=== PATIENT | female | born 1990 | race Caucasian/White ===

== ENCOUNTER 2017-05-18 21:55 | Emergency (ER) | payer OTHER ==
[~2017-05-18] VITALS: Ht 162.6 cm; Wt 103.0 kg
[~2017-05-18 21:55] MED LIST: GABA100C4 PO; LORA-474 PO; NORC10TA2 PO; SERT50 PO; SYNT125T PO
[2017-05-18 21:59] VITALS: BP 191/98; PULSE 108; RESP 16; TEMP 98; O2SAT 99
[2017-05-18] MEDS ORDERED: LIPI20TA PO (23:12)
[2017-05-18] MEDS ORDERED: LEVO.15 PO (23:12)
[2017-05-18] MEDS ORDERED: LEXA10TA PO (23:12)
[2017-05-18] MEDS ORDERED: KLON2TAB PO (23:12)
[2017-05-18] MEDS ORDERED: HYDR-3366 PO (23:12)
[2017-05-18] MEDS ORDERED: ONDANSETRON HCL 4 MG/2 ML VIAL IV PUSH ONE (23:30)
[2017-05-18] MEDS ORDERED: SODIUM CHLORIDE 0.9% FLUSH 10 ML FLUSH IV FLUSH PRN (23:30)
[2017-05-18] MEDS ORDERED: MORPHINE SULFATE 4 MG/ML INJ IV PUSH ONE (23:30)
--- NOTE | 2017-05-18 23:35 | PD ---
HPI Chief Complaint: Flank/Kidney Pain Time Seen by Provider: 23:13 Travel History International Travel<30 days: No Contact w/Intl Traveler<30days: No Traveled to known affect area: No History of Present Illness HPI 26yo F with PMH of anxiety presents to the ED with c/o left flank pain that radiates to left abdomen for 1 month. States pain has been gradually worsening. Associated with nausea and NBNB vomiting. Denies any fever, chest pain, urinary complaints, vaginal bleeding or discharge. PFSH Past Medical History Bipolar Disorder: Yes Anxiety: Yes Depression: Yes Diminished Hearing: No Endocrine: Yes Genitourinary: No Immune Disorder: No Musculoskeletal: Yes Neurologic: No Reproductive: Yes (POLYCYSTIC OVARIAN SYN) Respiratory: No Thyroid Disease: Yes Ulcer: No ?: Unknown : 1 Miscarriage: 1 Social History Alcohol Use: Yes ("a beer every now and then") Tobacco Use: No Substance Use: Yes Allergies-Medications (Allergen,Severity, Reaction): Coded Allergies: Amoxicillin (Verified Allergy, Intermediate, Rash, 05/18/17) Ibuprofen (Verified Allergy, Intermediate, Swelling, 05/18/17) "my tongue swells up" Reported Meds & Prescriptions Reported Meds & Active Scripts Active Tylenol (Acetaminophen) 325 Mg Tab 650 Mg PO Q6H PRN Reported Lipitor (Atorvastatin Calcium) 20 Mg Tab 20 Mg PO HS Klonopin (Clonazepam) 2 Mg Tab 2 Mg PO TID [place] (Hydrocodone-Acetaminophen) 10-325 Mg Tab 1 Tab PO Q6H PRN Lexapro (Escitalopram Oxalate) 10 Mg Tab 10 Mg PO DAILY Synthroid (Levothyroxine Sodium) 150 Mcg Tab 150 Mcg PO DAILY Review of Systems Except as stated in HPI: all other systems reviewed are Neg Physical Exam Narrative GENERAL: 26yo F in mild distress. SKIN: Focused skin assessment warm/dry. HEAD: Atraumatic. Normocephalic. EYES: Pupils equal and round. No scleral icterus. No injection or drainage. CARDIOVASCULAR: Regular rate and rhythm. No murmur appreciated. RESPIRATORY: No accessory muscle use. Clear to auscultation. Breath sounds equal bilaterally. GASTROINTESTINAL: Abdomen soft, obese. Mild ttp LLQ. No RLQ ttp. No rebound tenderness or guarding. MUSCULOSKELETAL: No obvious deformities. No clubbing. No cyanosis. No edema. NEUROLOGICAL: Awake and alert. No obvious cranial nerve deficits. Motor grossly within normal limits. Normal speech. PSYCHIATRIC: Anxious. Data Data Last Documented VS Vital Signs Date Time Temp Pulse Resp B/P Pulse Ox O2 Delivery O2 Flow Rate FiO2 05/19/17 02:12 16 05/18/17 21:59 98.0 108 191/98 99 Room Air Orders Basic Metabolic Panel (Bmp) (05/18/17 23:19) Complete Blood Count With Diff (05/18/17 23:19) Lipase (05/18/17 23:19) Urinalysis - C+S If Indicated (05/18/17 23:19) Ct Abd/Pel W Iv Contrast(Rout) (05/18/17 23:19) Iv Access Insert/Monitor (05/18/17 23:19) Ecg Monitoring (05/18/17 23:19) Oximetry (05/18/17 23:19) Sodium Chloride 0.9% Flush (Ns Flush) (05/18/17 23:30) Ed Urine Pregnancytest Poc (05/18/17 23:19) Ondansetron Inj (Zofran Inj) (05/18/17 23:30) Morphine Inj (Morphine Inj) (05/18/17 23:30) Iohexol 350 Inj (Omnipaque 350 Inj) (05/19/17 00:57) Labs Laboratory Tests Test 05/18/17 23:20 White Blood Count 10.6 TH/MM3 Red Blood Count 4.59 MIL/MM3 Hemoglobin 12.9 GM/DL Hematocrit 37.3 % Mean Corpuscular Volume 81.4 FL Mean Corpuscular Hemoglobin 28.1 PG Mean Corpuscular Hemoglobin 34.5 % Concent Red Cell Distribution Width 15.8 % Platelet Count 303 TH/MM3 Mean Platelet Volume 8.8 FL Neutrophils (%) (Auto) 49.3 % Lymphocytes (%) (Auto) 40.9 % Monocytes (%) (Auto) 4.6 % Eosinophils (%) (Auto) 4.7 % Basophils (%) (Auto) 0.5 % Neutrophils # (Auto) 5.2 TH/MM3 Lymphocytes # (Auto) 4.3 TH/MM3 Monocytes # (Auto) 0.5 TH/MM3 Eosinophils # (Auto) 0.5 TH/MM3 Basophils # (Auto) 0.1 TH/MM3 CBC Comment DIFF FINAL Differential Comment Urine Color YELLOW Urine Turbidity CLEAR Urine pH 5.5 Urine Specific [place] 1.031 Urine Protein NEG mg/dL Urine Glucose (UA) NEG mg/dL Urine Ketones NEG mg/dL Urine Occult Blood NEG Urine Nitrite NEG Urine Bilirubin NEG Urine Urobilinogen LESS THAN 2.0 MG/DL Urine Leukocyte Esterase NEG Urine RBC LESS THAN 1 /hpf Urine WBC 3 /hpf Urine Squamous Epithelial 2 /hpf Cells Urine Bacteria RARE /hpf Microscopic Urinalysis Comment CULT NOT INDICATED Sodium Level 139 MEQ/L Potassium Level 3.8 MEQ/L Chloride Level 104 MEQ/L Carbon Dioxide Level 30.6 MEQ/L Anion Gap 4 MEQ/L Blood Urea Nitrogen 12 MG/DL Creatinine 0.73 MG/DL Estimat Glomerular Filtration 96 ML/MIN Rate Random Glucose 87 MG/DL Calcium Level 9.2 MG/DL Lipase 121 U/L [facility] Medical Decision Making Medical Screen Exam Complete: Yes Emergency Medical Condition: Yes Interpretation(s) Laboratory Tests Test 05/18/17 23:20 White Blood Count 10.6 TH/MM3 (4.0-11.0) Red Blood Count 4.59 MIL/MM3 (4.00-5.30) Hemoglobin 12.9 GM/DL (11.6-15.3) Hematocrit 37.3 % (35.0-46.0) Mean Corpuscular Volume 81.4 FL (80.0-100.0) Mean Corpuscular Hemoglobin 28.1 PG (27.0-34.0) Mean Corpuscular Hemoglobin 34.5 % Concent (32.0-36.0) Red Cell Distribution Width 15.8 % (11.6-17.2) Platelet Count 303 TH/MM3 (150-450) Mean Platelet Volume 8.8 FL (7.0-11.0) Neutrophils (%) (Auto) 49.3 % (16.0-70.0) Lymphocytes (%) (Auto) 40.9 % (9.0-44.0) Monocytes (%) (Auto) 4.6 % (0.0-8.0) Eosinophils (%) (Auto) 4.7 % (0.0-4.0) Basophils (%) (Auto) 0.5 % (0.0-2.0) Neutrophils # (Auto) 5.2 TH/MM3 (1.8-7.7) Lymphocytes # (Auto) 4.3 TH/MM3 (1.0-4.8) Monocytes # (Auto) 0.5 TH/MM3 (0-0.9) Eosinophils # (Auto) 0.5 TH/MM3 (0-0.4) Basophils # (Auto) 0.1 TH/MM3 (0-0.2) CBC Comment DIFF FINAL Differential Comment Urine Color YELLOW (YELLW/STRAW) Urine Turbidity CLEAR (CLEAR) Urine pH 5.5 (5.0-8.5) Urine Specific [place] 1.031 (1.002-1.035) Urine Protein NEG mg/dL (NEG-TRACE) Urine Glucose (UA) NEG mg/dL (NEG) Urine Ketones NEG mg/dL (NEG) Urine Occult Blood NEG (NEG) Urine Nitrite NEG (NEG) Urine Bilirubin NEG (NEG) Urine Urobilinogen LESS THAN 2.0 MG/DL (LESS THAN 2.0) Urine Leukocyte Esterase NEG (NEG) Urine RBC LESS THAN 1 /hpf (0-3) Urine WBC 3 /hpf (0-5) Urine Squamous Epithelial 2 /hpf (0-5) Cells Urine Bacteria RARE /hpf (NONE) Microscopic Urinalysis Comment CULT NOT INDICATED Sodium Level 139 MEQ/L (136-145) Potassium Level 3.8 MEQ/L (3.5-5.1) Chloride Level 104 MEQ/L (98-107) Carbon Dioxide Level 30.6 MEQ/L (21.0-32.0) Anion Gap 4 MEQ/L (5-15) Blood Urea Nitrogen 12 MG/DL (7-18) Creatinine 0.73 MG/DL (0.50-1.00) Estimat Glomerular Filtration 96 ML/MIN (>89) Rate Random Glucose 87 MG/DL (74-106) Calcium Level 9.2 MG/DL (8.5-10.1) Lipase 121 U/L (73-393) Differential Diagnosis Nephrolithiasis vs. colitis vs. diverticulitis Narrative Course 26yo anxious appearing female here with c/o left sided abdominal pain for 1 month. Labs reviewed, no leukocytosis. BMP unremarkable. Lipase normal. UA shoed no leukocyte. Culture not indicated. Urine negative. CTa/p showed right lower quadrant abdominal wall hernia containing fat and apparent associated cutaneous ulceration. Correlation recommended. Pt is morbidly obese but has no right side abdominal pain and do not see any cutaneous ulcerations. Fibroid uterus, follow up with elective ultrasound suggested. No evidence of kidney stone, hydronephrosis or acute process. Pt states she knows she has a hernia. Advised to follow up with general surgery as needed as outpatient. Pt given morphine and zofran and reevaluated at bedside. Abdominal pain has resolved. Nausea has resolved as well. Return precautions given. Diagnosis Primary Impression: Abdominal pain Qualified Code: R10.32 - Left lower quadrant pain Referrals: Bull Walters MD as needed Abdominal wall hernia Patient Instructions: General Instructions Departure Forms: Tests/Procedures Additional Instructions: Please follow up with general surgery as needed for abdominal wall hernia seen on CT scan. Please follow up with [facility] for elective ultrasound to further evaluate fibroid. Return to the ED if symptoms worsen. Med/Other Pt SpecificInfo: Prescription(s) given Scripts Acetaminophen (Tylenol)325 Mg [id number] Mg PO Q6H PRN (PAIN SCALE 1 TO 4) #20 TAB Ref 0 Prov:Janis Graf DO 05/19/17 Disposition: 01 DISCHARGE HOME Condition: Stable Janis Graf DO May 18, 2017 23:35
[2017-05-18 23:54] LABS: AUTOMATED NEUTROPHIL # 5.2 TH/MM3 (1.8-7.7); BASOPHIL # 0.1 TH/MM3 (0-0.2); BASOPHIL % 0.5 % (0.0-2.0); EOSINOPHIL # 0.5 TH/MM3 (0-0.4); EOSINOPHIL % 4.7 % (0.0-4.0); HEMATOCRIT 37.3 % (35.0-46.0); HEMO FLAGS DIFF FINAL; LYMPH % 40.9 % (9.0-44.0); LYMPHOCYTE # 4.3 TH/MM3 (1.0-4.8); MEAN CELL VOLUME 81.4 FL (80.0-100.0); MEAN CORPUSCULAR HEMOGLOBIN 28.1 PG (27.0-34.0); MEAN CORPUSCULAR HGB CONC 34.5 % (32.0-36.0); MONO % 4.6 % (0.0-8.0); NEUT % 49.3 % (16.0-70.0); PLATELET COUNT 303 TH/MM3 (150-450); RED BLOOD COUNT 4.59 MIL/MM3 (4.00-5.30); RED CELL DISTRIBUTION WIDTH 15.8 % (11.6-17.2); WHITE BLOOD COUNT 10.6 TH/MM3 (4.0-11.0)
[2017-05-18 23:57] LABS: BACTERIA, URINE RARE /hpf; BLOOD, URINE NEG (NEG); COMMENT (UR) CULT NOT INDICATED; CULTURE IF INDICATED CULT NOT INDICATED; GLUCOSE,URINE NEG (NEG); KETONE, URINE NEG (NEG); NITRITE,URINE NEG (NEG); PH, URINE 5.5 (5.0-8.5); SQUAMOUS EPITHELIAL CELL URINE 2 /hpf (0-5); URINE COLOR YELLOW (YELLW/STRAW)
[2017-05-19 00:16] LABS: BICARBONATE 30.6 MEQ/L (21.0-32.0); POTASSIUM 3.8 MEQ/L (3.5-5.1)
[2017-05-19] MEDS ORDERED: IOHEXOL 350 MG/ML 10 ML VIAL (for RAD DIAG) IV ONE (00:57)
--- NOTE | 2017-05-19 01:28 | RADRPT ---
EXAM DATE/TIME: 05/19/2017 00:53 [facility] COMPARISON: No previous studies available for comparison. INDICATIONS : Left flank pain. IV CONTRAST: 95 cc Omnipaque 350 (iohexol) IV ORAL CONTRAST: No oral contrast ingested. RADIATION DOSE: 29.45 CTDIvol (mGy) ; Patient body habitus MEDICAL HISTORY : Seizures. Cardiovascular disease Diabetes. Polycystic ovarian syndrome. Substance abuse. SURGICAL HISTORY : None. ENCOUNTER: Initial ACUITY: 1 day PAIN SCALE: 8/10 LOCATION: Left flank TECHNIQUE: Volumetric scanning of the abdomen and pelvis was performed. Using automated exposure control and ad justment of the mA and/or kV according to patient size, radiation dose was kept as low as reasonably achievable to obtain optimal diagnostic quality images. DICOM format image data is available electro nically for review and comparison. FINDINGS: LOWER LUNGS: The visualized lower lungs are clear. LIVER: Homogeneous density without lesion. There is no dilation of the biliary tree. No calcified gallston es. SPLEEN: Normal size without lesion. PANCREAS: Within normal limits. KIDNEYS: Normal in size and shape. There is no mass, stone or hydronephrosis. ADRENAL GLANDS: Within normal limits. VASCULAR: There is no aortic aneurysm. BOWEL/MESENTERY: The stomach, small bowel, and colon demonstrate no acute abnormality. There is no free intraperitone al air or fluid. ABDOMINAL WALL: There is a moderately large fat containing hernia involving the low right paramedian anterior abdomin al wall. The hernia sac appears to extend to the skin surface where there may be some cutaneous ulcer ation present. This may be a spigelian hernia or incisional hernia if there has been prior surgery in this region. Correlation recommended RETROPERITONEUM: There is no lymphadenopathy. BLADDER: No wall thickening or mass. REPRODUCTIVE: There is a slightly greater than 3 cm heterogeneous mass arising from the anterior uterine fundus whi ch is presumably a fibroid. There is mild prominence of soft tissue density in the right adnexal tray on which may be a very involved with physiologic cysts. The findings could be further evaluated on an elective basis with pelvic sonography INGUINAL: There is no lymphadenopathy or hernia. MUSCULOSKELETAL: Within normal limits for patient age. CONCLUSION: Right lower quadrant abdominal wall hernia containing fat and apparent associated cutaneous ulceratio n. Correlation recommended. Fibroid uterus and possible physiologic findings in the adnexa. Followup with elective outpatient ult rasound suggested. No evidence of kidney stone, hydronephrosis or other acute process. Bandar Goss MD on May 19, 2017 at 1:14 Board Certified Radiologist. This report was verified electronically.
[2017-05-19 02:00] VITALS: BP 188/89; PULSE 74; RESP 20
[2017-05-19 02:12] VITALS: RESP 16
[2017-05-19] MEDS ORDERED: TYLE325T PO (02:42)
== END 2017-05-19 04:16 | disposition home or self-care (01) ==
LOC: NEPE 21:55
DX: R10.32 Left lower quadrant pain (principal); K43.9 Ventral hernia without obstruction or gangrene; D25.9 Leiomyoma of uterus, unspecified
CPT/HCPCS: 74177; 80048; 81001; 83690; 84703; 85025; 96374; 96375; 99285; J2270; J2405; Q9967

== ENCOUNTER 2017-06-02 10:23 | Emergency (ER) | payer OTHER ==
[~2017-06-02] VITALS: Ht 157.5 cm; Wt 110.0 kg
[~2017-06-02 10:23] MED LIST changes: -GABA100C4 PO; +HYDR-3366 PO; +KLON2TAB PO; +LEVO.15 PO; +LEXA10TA PO; +LIPI20TA PO; -LORA-474 PO; -NORC10TA2 PO; -SERT50 PO; -SYNT125T PO; +TYLE325T PO
[2017-06-02 10:28] VITALS: BP 118/65; PULSE 100; RESP 20; TEMP 99.2; O2SAT 95
[2017-06-02] MEDS ORDERED: LEXA10TA PO (10:50)
[2017-06-02] MEDS ORDERED: LEVO150T7 PO (10:50)
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
[2017-06-02 13:00] VITALS: BP 118/75
[2017-06-03] MEDS ORDERED: LEVOTHYROXINE SODIUM 150 MCG TAB PO SCH (09:00)
[2017-06-03] MEDS ORDERED: NICOTINE 21 MG/24 HR PATCH T-DERMAL SCH (09:00)
[2017-06-03] MEDS ORDERED: REMOVE OLD NICOTINE PATCH T-DERMAL SCH (21:00)
[2017-06-03] MEDS ORDERED: ATORVASTATIN 20 MG TAB PO SCH (21:00)
== END 2017-06-02 13:00 | disposition home or self-care (01) ==
LOC: NEPE 10:23
DX: F43.21 Adjustment disorder with depressed mood (principal); R06.02 Shortness of breath; Z59.0 Homelessness; Z88.0 Allergy status to penicillin; E11.9 Type 2 diabetes mellitus without complications
CPT/HCPCS: 99284

== ENCOUNTER 2017-06-02 21:26 | Inpatient (IN) | payer OTHER ==
[~2017-06-02] VITALS: Ht 157.5 cm; Wt 112.4 kg
[~2017-06-02 21:26] MED LIST changes: +LEVO150T7 PO
[2017-06-02] MEDS ORDERED: SODIUM CHLOR 0.9% 1000 ML INJ 1,000 ML IV ONE (21:45)
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
[2017-06-02 22:11] VITALS: BP 114/54; PULSE 68; RESP 16; TEMP 98.6; O2SAT 99
[2017-06-02 22:42] LABS: AUTOMATED NEUTROPHIL # 4.5 TH/MM3 (1.8-7.7); BASOPHIL % 0.4 % (0.0-2.0); EOSINOPHIL # 0.3 TH/MM3 (0-0.4); EOSINOPHIL % 3.2 % (0.0-4.0); HEMATOCRIT 36.1 % (35.0-46.0); HEMO FLAGS DIFF FINAL; LYMPH % 35.2 % (9.0-44.0); LYMPHOCYTE # 2.9 TH/MM3 (1.0-4.8); MEAN CORPUSCULAR HEMOGLOBIN 27.5 PG (27.0-34.0); MEAN CORPUSCULAR HGB CONC 33.6 % (32.0-36.0); MONO % 7.1 % (0.0-8.0); NEUT % 54.1 % (16.0-70.0); PLATELET COUNT 284 TH/MM3 (150-450); RED CELL DISTRIBUTION WIDTH 15.4 % (11.6-17.2); WHITE BLOOD COUNT 8.3 TH/MM3 (4.0-11.0)
[2017-06-02 22:58] LABS: ANION GAP 9 MEQ/L (5-15); AST (GOT) 21 U/L (15-37); BICARBONATE 26.2 MEQ/L (21.0-32.0); BLOOD UREA NITROGEN 10 MG/DL (7-18); CHLORIDE 105 MEQ/L (98-107); GLOMERULAR FILTRATION RATE 99 ML/MIN (>89); POTASSIUM 3.2 MEQ/L (3.5-5.1); SODIUM (NA) 140 MEQ/L (136-145)
[2017-06-02 22:59] LABS: ALT (GPT) 29 U/L (10-53)
[2017-06-02 23:03] LABS: APTT (PATIENT) 27.3 SEC (24.3-30.1); PROTHROMBIN TIME - PATIENT 10.7 SEC (9.8-11.6)
[2017-06-02 23:09] LABS: ALKALINE PHOSPHATASE 84 U/L (45-117); TOTAL BILIRUBIN ADULT 0.4 MG/DL (0.2-1.0)
[2017-06-02 23:23] LABS: ACETAMINOPHEN LESS THAN 2.0 MCG/ML (10.0-30.0)
[2017-06-02 23:31] LABS: BACTERIA, URINE RARE /hpf; BLOOD, URINE NEG (NEG); GLUCOSE,URINE NEG (NEG); KETONE, URINE NEG (NEG); NITRITE,URINE NEG (NEG); PH, URINE 5.5 (5.0-8.5); SQUAMOUS EPITHELIAL CELL URINE 3 /hpf (0-5); URINE COLOR YELLOW (YELLW/STRAW)
[2017-06-02 23:32] LABS: COMMENT (UR) CULT NOT INDICATED; CULTURE IF INDICATED CULT NOT INDICATED
[2017-06-02 23:37] LABS: AMPHETAMINE, URINE NEG (NEG); BARBITURATES, URINE NEG (NEG); COCAINE, URINE NEG (NEG)
[2017-06-03] MEDS ORDERED: ACETAMINOPHEN 325 MG TAB PO ONE (01:45)
[2017-06-03 01:48] VITALS: BP 121/74; PULSE 72; RESP 18; TEMP 97.2; O2SAT 98
[2017-06-03 06:06] VITALS: BP 98/56; PULSE 70; RESP 16; TEMP 97.1; O2SAT 99
[2017-06-03 10:06] VITALS: BP 142/88; PULSE 87; RESP 18; O2SAT 99
[2017-06-03 14:18] VITALS: BP 137/86; PULSE 75; RESP 18; O2SAT 99
[2017-06-03 14:46] VITALS: BP 124/71; PULSE 71; RESP 18; TEMP 97.1; O2SAT 99
--- NOTE | 2017-06-03 16:23 | EKG ---
Date Performed: 06/02/2017 Time Performed: 23:48:16 PTAGE: 26 years EKG: Sinus rhythm NORMAL ECG NO PREVIOUS TRACING DOCTOR: Stewart Ervin Interpretating Date/Time 06/03/2017 16:19:54
[2017-06-03] MEDS: clonazePAM 0.5 MG TAB PO SCH (17:48)
[2017-06-03] MEDS ORDERED: PILL SPLITTER OTHER PRN (19:15)
[2017-06-03] MEDS: ATORVASTATIN 20 MG TAB PO SCH (20:42)
[2017-06-03] MEDS: ACETAMINOPHEN/HYDROcodone 325 MG/5 MG TAB PO PRN (20:42)
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
[2017-06-04] MEDS: LEVOTHYROXINE SODIUM 150 MCG TAB PO SCH (05:58)
[2017-06-04 06:08] VITALS: BP 122/85; PULSE 80; RESP 16; TEMP 98.1; O2SAT 100
[2017-06-04] MEDS: ACETAMINOPHEN/HYDROcodone 325 MG/5 MG TAB PO PRN ×3 (06:22→21:24)
[2017-06-04 08:37] LABS: HDL CHOLESTEROL 36.9 MG/DL (40.0-60.0); LDL CHOLESTEROL 69 MG/DL (0-99)
[2017-06-04] MEDS: clonazePAM 0.5 MG TAB PO SCH ×3 (09:20→17:20)
[2017-06-04] MEDS: SERTRALINE HCL 50 MG TAB PO SCH (09:20)
[2017-06-04 15:26] VITALS: BP 145/79; PULSE 71; RESP 18; TEMP 96.5; O2SAT 96
[2017-06-04 16:14] LABS: HEMOGLOBIN A1a 1.1 %; HEMOGLOBIN A1b 1.5 %; HEMOGLOBIN Ao 87.1 %; HEMOGLOBIN LA1C 1.7 %; HEMOGLOBIN P3 3.2 %
[2017-06-04] MEDS: ATORVASTATIN 20 MG TAB PO SCH (21:24)
[2017-06-04] MEDS: QUEtiapine FUMARATE 25 MG TAB PO SCH (21:24)
[2017-06-05] MEDS: LEVOTHYROXINE SODIUM 150 MCG TAB PO SCH (05:59)
[2017-06-05 06:27] VITALS: BP 103/67; PULSE 79; RESP 20; TEMP 98.2; O2SAT 97
[2017-06-05] MEDS: clonazePAM 0.5 MG TAB PO SCH ×3 (08:32→19:00)
[2017-06-05] MEDS: SERTRALINE HCL 50 MG TAB PO SCH (08:33)
[2017-06-05] MEDS: ACETAMINOPHEN/HYDROcodone 325 MG/5 MG TAB PO PRN ×3 (09:05→21:28)
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
[2017-06-05] MEDS ORDERED: LEVO.15 PO (15:26)
[2017-06-05] MEDS ORDERED: ATOR20TA15 PO (15:26)
[2017-06-05] MEDS ORDERED: ZOLO50TA PO (15:26)
[2017-06-05] MEDS ORDERED: QUET1TAB7 PO (15:26)
[2017-06-05] MEDS ORDERED: HYDR-3516 PO (15:26)
[2017-06-05] MEDS ORDERED: CLON.5 PO (15:26)
[2017-06-05 17:16] VITALS: BP 139/75; PULSE 78; RESP 19; TEMP 96.6; O2SAT 96
[2017-06-05] MEDS: QUEtiapine FUMARATE 25 MG TAB PO SCH (20:32)
[2017-06-05] MEDS: ATORVASTATIN 20 MG TAB PO SCH (20:32)
[2017-06-06] MEDS: LEVOTHYROXINE SODIUM 150 MCG TAB PO SCH (05:18)
[2017-06-06 05:21] VITALS: BP 104/72; PULSE 75; RESP 18; TEMP 98; O2SAT 99
[2017-06-06] MEDS: ACETAMINOPHEN/HYDROcodone 325 MG/5 MG TAB PO PRN (08:01)
[2017-06-06] MEDS: SERTRALINE HCL 50 MG TAB PO SCH (08:33)
[2017-06-06] MEDS: clonazePAM 0.5 MG TAB PO SCH (08:33)
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
== END 2017-06-06 12:00 | disposition home or self-care (01) | DRG 882 ==
LOC: NEPC 21:26 → NEDA 06-03 08:25 → H260 06-03 14:29
PROVIDERS: ADMIT Psychiatry & Neurology Psychiatry; ATTEND Psychiatry & Neurology Psychiatry
DX: F43.25 Adjustment disorder with mixed disturbance of emotions and conduct (principal); Z68.42 Body mass index [BMI] 45.0-49.9, adult; F32.9 Major depressive disorder, single episode, unspecified; E03.9 Hypothyroidism, unspecified; F60.3 Borderline personality disorder; F43.10 Post-traumatic stress disorder, unspecified; F12.10 Cannabis abuse, uncomplicated; T50.902A Poisoning by unspecified drugs, medicaments and biological substances, intentional self-harm, initial encounter; E28.2 Polycystic ovarian syndrome; E66.9 Obesity, unspecified; E78.5 Hyperlipidemia, unspecified; G89.29 Other chronic pain; Z88.6 Allergy status to analgesic agent; Z88.0 Allergy status to penicillin
CPT/HCPCS: 80053; 80061; 80307; 81001; 83036; 84443; 84703; 85025; 85610; 85730; 93005; J7030

== ENCOUNTER 2018-03-13 10:48 | Emergency (ER) | payer MEDICAID ==
[~2018-03-13 10:48] MED LIST changes: +ATOR20TA15 PO; +CLON.5 PO; +HYDR-3516 PO; +QUET1TAB7 PO; +ZOLO50TA PO
--- NOTE | 2018-03-13 12:12 | PD ---
HPI Chief Complaint Shortness of breath and abdominal pain Date Seen: March 13, 2018 Time Seen: 11:45 Travel History International Travel<30 Days: No Contact w/Intl Traveler<30Days: No History of Present Illness HPI 27-year-old female at 21/6 weeks gestation presented to the OB triage from OB diagnostic due to complaints of shortness of breath and abdominal discomfort due to her abdominal hernia. Denies loss of fluid, vaginal bleeding and contractions. Endorses movement. Patient reports that she was found while she was 3 weeks ago and 1 week ago [facility] she [facility] Dr. Jace Chapin who she follows with. Dopplers here in the ED triage revealed a heart rate 156. Estimated due date is 07/19/18. Patient 's last menstrual period was 10/27/17. Endorses shortness of breath that is brought on by abdominal hernia pain. 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 Ventral hernia is reducible, patient denies any nausea vomiting, diarrhea , fever or chills. Weeks Gestation: 21 Para: 0 : 2 Last Menstrual Period: Oct 27, 2018 Miscarriage: 1 : 0 History Past Medical History Narrative Medical Anxiety Abdominal hernia since a year ago Hypothyroid Borderline diabetes Chronic back pain Obstetric History Obstetric History Miscarriage 1 Past Surgical History Surgical History: No Previous Surgery Family History Narrative Family History Heart disease, hypertension- mother Social History Alcohol Use: No Tobacco Use: No Substance Abuse: No Allergies-Medications (Allergen,Severity, Reaction): Coded Allergies: amoxicillin (Unverified Allergy, Intermediate, Rash, 06/11/17) ibuprofen (Unverified Allergy, Intermediate, Swelling, 06/11/17) "my tongue swells up" Home Meds Active Scripts Sertraline (Zoloft) 50 Mg Tab, 25 MG PO DAILY for Depression Control, #10 TAB 1 Refill Prov:Kamron Gutiérrez MD 06/05/17 Quetiapine (Quetiapine) 25 Mg Tab, 25 MG PO HS for Anxiety and/or Insomnia, #10 TAB 1 Refill Prov:Kamron Gutiérrez MD 06/05/17 Levothyroxine (Synthroid) 150 Mcg Tab, 150 MCG PO DAILY@06 for Thyroid for 14 Days, TAB Prov:Kamron Gutiérrez MD 06/05/17 Hydrocodone-Acetaminophen (Hydrocodone-Acetaminophen) 5-325 mg Tab, 1 TAB PO Q6H Y for PAIN SCALE 4 TO 10, #10 TAB Prov:Kamron Gutiérrez MD 06/05/17 Clonazepam (Klonopin) 0.5 Mg Tab, 0.5 MG PO TID for Anxiety and/or Insomnia, # 21 TAB 1 Refill Prov:Kamron Gutiérrez MD 06/05/17 Atorvastatin (Atorvastatin) 20 Mg Tab, 20 MG PO HS for Cholesterol Management for 10 Days, TAB Prov:Kamron Gutiérrez MD 06/05/17 Levothyroxine (Levothyroxine) 150 Mcg Tab, 150 MCG PO DAILY for Thyroid, #30 TAB 0 Refills Prov:Nicky Hobson MD 06/02/17 Acetaminophen (Tylenol) 325 Mg Tab, 650 MG PO Q6H Y for PAIN SCALE 1 TO 4, #20 TAB 0 Refills Prov:Janis Graf DO 05/19/17 Reported Medications Atorvastatin (Lipitor) 20 Mg Tab, 20 MG PO HS for Cholesterol Management, #30 TAB 0 Refills 05/18/17 Clonazepam (Klonopin) 2 Mg Tab, 2 MG PO TID, #90 TAB 0 Refills 05/18/17 Hydrocodone-Acetaminophen ([place]) 10-325 Mg Tab, 1 TAB PO Q6H Y for PAIN, TAB 0 Refills 05/18/17 Escitalopram (Lexapro) 10 Mg Tab, 10 MG PO DAILY, #30 TAB 0 Refills 05/18/17 Narrative Medication Patient reports that she has not been taking any of her medications since September 2017. Review of Systems Except as stated in HPI: all other systems reviewed are Neg (per HPI) Physical Exam Narrative GENERAL: Morbidly obese female well-nourished, well-developed patient. SKIN: Warm and dry. HEAD: Normocephalic and atraumatic. EYES: No scleral icterus. No injection or drainage. ENT: No nasal drainage noted. Mucous membranes pink. Airway patent. NECK: Supple, trachea midline. No JVD. CARDIOVASCULAR: Regular rate and rhythm without murmurs, gallops, or rubs. RESPIRATORY: Breath sounds equal bilaterally. No accessory muscle use. BREASTS: Bilateral exam showed no masses , no retractions, no nipple discharge. ABDOMEN/GI: Obese abdomen soft, mild tenderness above umbilicus, patient attributes this this to ventral hernia. Bowel sounds present, no rebound, no guarding Gravid to 21 weeks size GENITOURINARY: Membranes: intact Uterine Contractions: none FHT's: 156 EXTREMITIES: No cyanosis or edema. BACK: Nontender without obvious deformity. No CVA tenderness. NEUROLOGICAL: Awake and alert. Motor and sensory grossly within normal limits. Five out of 5 muscle strength in all muscle groups. Normal speech. Data Data Vital Signs Reviewed: Yes [facility] Medical Record Reviewed: Yes Plan 27-year-old female at 21/6 weeks gestation presented to the OB triage from OB diagnostic due to complaints of shortness of breath and abdominal discomfort due to her abdominal hernia. IUP at 21/6 weeks gestation 1. VS stable and benign physical exam 2. FHT of 156 3. Patient will be discharged and advised to follow-up with her OB doctor as an outpatient. Patient advised to ask her OB doctor for further evaluation and possible referral for her abdominal hernia. 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 Diagnosis Diagnosis: Primary Impression: 21 weeks gestation of Additional Impressions: Shortness of breath Abdominal hernia Qualified Codes: K43.9 - Ventral hernia without obstruction or gangrene Disposition: 01 DISCHARGE HOME Condition: Stable Griselda Kat MD, R1 March 13, 2018 12:12
--- NOTE | 2018-03-13 12:13 | HHI.DCPOC ---
Discharge Care Plan Diagnosis: (1) Shortness of breath (2) Abdominal hernia (3) Abdominal pain (4) 21 weeks gestation of Goals to Promote Your Health * To prevent worsening of your condition and complications * To maintain your health at the optimal level Directions to Meet Your Goals Take your medications as prescribed Follow your dietary instruction Follow activity as directed Keep your appointments as scheduled Take your immunizations and boosters as scheduled If your symptoms worsen call your PCP, if no PCP go to Urgent Care Center or Emergency Room Smoking is Dangerous to Your Health. Avoid second hand smoke Call the 24-hour hour crisis hotline for domestic abuse at Griselda Kat MD, R1 March 13, 2018 12:13
== END 2018-03-13 12:38 | disposition home or self-care (01) ==
LOC: HOBED 10:48
DX: O26.892 Other specified pregnancy related conditions, second trimester (principal); R06.02 Shortness of breath; O99.612 Diseases of the digestive system complicating pregnancy, second trimester; K46.9 Unspecified abdominal hernia without obstruction or gangrene; Z3A.21 21 weeks gestation of pregnancy
CPT/HCPCS: 99281

== ENCOUNTER → 2018-03-13 | Outpatient (CLI) | DX: O99.212 Obesity complicating pregnancy, second trimester (principal); E66.01 Morbid (severe) obesity due to excess calories; Z68.43 Body mass index [BMI] 50.0-59.9, adult; O99.282 Endocrine, nutritional and metabolic diseases complicating pregnancy, second trimester; O24.410 Gestational diabetes mellitus in pregnancy, diet controlled ==

== ENCOUNTER → 2018-04-02 | Outpatient (CLI) | payer MEDICAID | LOC: HPND 10:05 | PROVIDERS: ATTEND Obstetrics & Gynecology | DX: O99.282 Endocrine, nutritional and metabolic diseases complicating pregnancy, second trimester (principal); O24.410 Gestational diabetes mellitus in pregnancy, diet controlled; O99.212 Obesity complicating pregnancy, second trimester; E66.01 Morbid (severe) obesity due to excess calories; Z68.43 Body mass index [BMI] 50.0-59.9, adult | CPT/HCPCS: 76816; 76825; 76827; 93325 ==

== ENCOUNTER 2018-05-15 11:41 | Inpatient (IN) ==
[2018-05-15] MEDS ORDERED: Aluminum/Magnesium/Simethacone Susp 30 ML UDC PO PRN (12:48)
[2018-05-15] MEDS ORDERED: Zolpidem Tartrate 5 MG Tablet PO PRN (12:48)
[2018-05-15 13:36] LABS: Bilirubin,Urine Negative (Negative); Clarity,Urine Cloudy (Clear); Color,Urine Yellow (Yellw/Straw); Glucose,Urine (UA) 50 mg/dL (Negative); Nitrite,Urine Negative (Negative); Specific Gravity,Urine 1.019 (1.002-1.035)
[2018-05-15 13:37] LABS: Bacteria,Urine Rare /hpf; Calcium Oxalate Crystals,Urine Many /hpf; Leukocyte Esterase,Urine Moderate (Negative); Mucus,Urine Few /lpf (Occasional); Squamous Epithelial Cell,Urine 4 /hpf (0-5)
[2018-05-15 13:49] LABS: Amphetamine Urine With Conf Neg (Neg); Benzodiazepine Urine With Conf Neg (Neg)
--- NOTE | 2018-05-15 14:34 | P.HPOB ---
History of Present Illness Service: OB Primary Care Physician: UNKNOWN Chief Complaint: Insulin/glucose management History of Present Illness: Ms. Judd is a 27yo at who presents from [facility] for management of GDM. She had a 50g glucose challenge on 04/23 that showed glucose of 208. HBA1c at that time measured 6.0. She has been taking her blood sugars for the past 3 days and her fastings have run in the 120's and her 2hr postprandials have been running in the 180's. She reports a PMH of prediabetes for which she took metformin but has been off of it for >1 year. She reports some sharp abdominal pains last night that resolved by this am. She reports good movement. Denies vaginal bleeding, loss of fluid, chest pain. She does report some difficulty breathing with activity. U/s report shows polyhydramnios at 25.7 with max pocket of 8.6 - Inpatient Certification I certify that the inpatient services were ordered in accordance with Medicare regulations governing the order. This includes certification that hospital inpatient services are reasonable and necessary and in the case of services not specified as inpatient-only under 42 CFR 419.22(n), that they are appropriately provided as inpatient services in accordance to with the 2-midnight benchmark under 43 CFR 412.3(e) Review of Systems Constitutional: Denies chills, Denies fever(s) Cardiovascular: Denies chest pain, Denies lightheadedness Respiratory: Reports shortness of breath, Denies cough Gastrointestinal: Reports abdominal pain, Reports nausea (Minimal, resolving), Denies vomiting Genitourinary: Denies abnormal vaginal bleeding, Denies painful urination Musculoskeletal: Reports back pain Endocrine: Reports increased urination, Denies increased thirst PMFSH - Medical History Medical History: Medical History (Last Updated 05/15/18 @ 14:07 by Darby Laird MD, R1) GDM (gestational diabetes mellitus) Hypothyroid Prediabetes Umbilical hernia - Tobacco History Tobacco Use In Past 30 Days: No - Alcohol History How Often Do You Have a Drink Containing Alcohol: Never - Substance Use History Substance History: No History of Abuse - Travel History Recent Travel in the [place] Within the Last 8 Weeks: No Recent Travel Out of the Country Within the Last 8 Weeks: No Medications and Allergies Active Medications: Active Medications Acetaminophen (Tylenol) 650 mg PO Q4H PRN PRN Reason: PAIN SCALE 1 TO 5 Al Hydrox/Mg Hydrox/Simethicone (Mag-Al Plus Susp Liq) 30 ml PO QID PRN PRN Reason: HEARTBURN Diphenhydramine HCl (Benadryl) 25 mg PO Q4H PRN PRN Reason: anxiety Docusate Sodium (Colace) 100 mg PO DAILY ZEB Ferrous Sulfate (Ferosul) 325 mg PO BID ZEB Levothyroxine Sodium (Synthroid) 100 mcg PO DAILY@0600 ZEB Levothyroxine Sodium (Synthroid) 75 mcg PO DAILY@0600 ZEB Ondansetron HCl (Zofran Odt) 4 mg PO Q6H PRN PRN Reason: NAUSEA OR VOMITING Vit/Calcium/Iron/Folic Ac (Stuartnatal Plus 3) 1 tab PO DAILY ZEB Sodium Chloride (Ns Flush) 2 ml IV.FLUSH BID ZEB Sodium Chloride (Ns Flush) 2 ml IV.FLUSH UNSCH PRN PRN Reason: FLUSH AFTER USING IV ACCESS Zolpidem Tartrate (Ambien) 5 mg PO HS PRN PRN Reason: SLEEP Allergies Allergy/AdvReac Type Severity Reaction Status Date / Time ibuprofen Allergy Intermediate Swelling Verified 05/15/18 12:41 tramadol Allergy Difficulty Verified 05/15/18 12:41 Breathing Home Medications Medication Instructions Recorded Confirmed Type levothyroxine [Synthroid] 175 mcg PO DAILY 04/27/18 05/15/18 History prenat.vits,salma,[id number] 1 tab PO DAILY 04/27/18 05/15/18 History [ Vitamin] diphenhydramine HCl [Benadryl] 25 mg PO Q4-6H PRN 05/15/18 05/15/18 History Exam Vital signs: Vital Signs 05/15/18 12:38 Pulse Rate 102 H Respiratory Rate 19 Blood Pressure 140/63 - Constitutional no acute distress, morbidly obese - Routine Respiratory Exam Present: decreased breath sounds (Likely due to patient's body habitus), CTA bilaterally. Absent: accessory muscle use - Routine Cardiovascular Exam Present: RRR, S1, S2 - Routine Abdominal Exam Present: normoactive bowel sounds. Absent: tenderness Comments: Large pannus - Routine Extremities Exam Present: edema (trace pedal edema bilaterally). Absent: cyanosis, calf tenderness Results - Labs CBC & Chem 7: 05/15/18 14:19 05/15/18 14:19 Labs: Laboratory Results - last 24 hr 05/15/18 12:40 Urine Color Yellow Urine Clarity Cloudy H Urine pH 6.0 Ur Specific [place] 1.019 Urine Protein Negative Urine Glucose (UA) 50 Urine Ketones Trace H Urine Occult Blood Negative Urine Nitrate Negative Urine Bilirubin Negative Urine Urobilinogen Less than 2 Ur Leukocyte Esterase Moderate H Urine RBC 2 Urine WBC 4 Ur Squamous Epith Cells 4 Calcium Oxalate Crystal Many H Urine Bacteria Rare H Urine Mucus Few H Micro UA Comment Culture not ind Urine Culture Comments Culture not ind Caprini VTE Risk Assessment Caprini VTE Risk Assessment: Moderate/High Risk (score >= 2) Caprini Risk Assessment Model: Point Value = 1 Point Value = 2 Point Value = 3 Point Value = 5 Age 41-60 Minor surgery BMI > 25 kg/m2 Swollen legs Varicose veins or History of unexplained or recurrent spontaneous Oral contraceptives or hormone replacement Sepsis (< 1 month) Serious lung disease, including pneumonia (< 1 month) Abnormal pulmonary function Acute myocardial infarction Congestive heart failure (< 1 month) History of inflammatory bowel disease Medical patient at bed rest Age 61-74 Arthroscopic surgery Major open surgery (> 45 min) Laparoscopic surgery (> 45 min) Malignancy Confined to bed (> 72 hours) Immobilizing plaster cast Central venous access Age >= 75 History of VTE Family history of VTE Factor V Leiden Prothrombin [id number] Lupus anticoagulant Anticardiolipin antibodies Elevated serum homocysteine Heparin-induced thrombocytopenia Other congenital or acquired thrombophilia Stroke (< 1 month) Elective arthroplasty Hip, pelvis, or leg fracture Acute spinal cord injury (< 1 month) Prophylaxis Regimen: Total Risk Factor Score Risk Level Prophylaxis Regimen 0-1 Low Early ambulation 2 Moderate Order ONE of the following: *Sequential Compression Device (SCD) *Heparin 5000 units SQ BID 3-4 Higher Order ONE of the following medications: *Heparin 5000 units SQ TID *Enoxaparin/Lovenox 40 mg SQ daily (WT < 150 kg, CrCl > 30 mL/min) *Enoxaparin/Lovenox 30 mg SQ daily (WT < 150 kg, CrCl > 10-29 mL/min) *Enoxaparin/Lovenox 30 mg SQ BID (WT < 150 kg, CrCl > 30 mL/min) AND/OR *Sequential Compression Device (SCD) 5 or more Highest Order ONE of the following medications: *Heparin 5000 units SQ TID (Preferred with Epidurals) *Enoxaparin/Lovenox 40 mg SQ daily (WT < 150 kg, CrCl > 30 mL/min) *Enoxaparin/Lovenox 30 mg SQ daily (WT < 150 kg, CrCl > 10-29 mL/min) *Enoxaparin/Lovenox 30 mg SQ BID (WT < 150 kg, CrCl > 30 mL/min) AND *Sequential Compression Device (SCD) Assessment and Plan - Diagnosis (1) Gestational diabetes mellitus Code(s): O24.419 - Gestational diabetes mellitus in , unspecified control Status: Acute (2) 31 weeks gestation of Code(s): Z3A.31 - 31 weeks gestation of Status: Acute - Plan Ms. Jdud is a 27yo morbidly obese at here for management of GDM. -Admit to antepartum -CMP, CBC, UA -Bedside blood glucose fasting, 11:00, 16:00, 21:00 -Start with 10U NPH tonight, monitor BS and adjust as needed. -NST qshift -Diabetic diet -Ambulate as tolerated -SCD's OSMANY Hernandez
[2018-05-15 15:28] LABS: Baso % (Auto) 0.3 % (0.0-2.0); Eos # (Auto) 0.3 th/mm3 (0.0-0.4); Eos % (Auto) 2.3 % (0.0-4.0); Hematocrit 33.2 % (35.0-46.0); Hemoglobin 11.1 gm/dL (11.6-15.3); Lymph # (Auto) 2.2 th/mm3 (1.0-4.8); Lymph % (Auto) 18.9 % (9.0-44.0); Mean Corpuscular HGB Conc 33.3 % (32.0-36.0); Mean Corpuscular Hemoglobin 26.3 pg (27.0-34.0); Mean Platelet Volume 8.1 fL (7.0-11.0); Mono # (Auto) 0.7 th/mm3 (0.0-0.9); Mono % (Auto) 5.7 % (0.0-8.0); Neut # (Auto) 8.6 th/mm3 (1.8-7.7); Neut % (Auto) 72.8 % (16.0-70.0); Platelet Count 292 th/mm3 (150-450); Red Cell Distribution Width 18.3 % (11.6-17.2); White Blood Count 11.8 th/mm3 (4.0-11.0)
[2018-05-15] MEDS: Acetaminophen 325 MG Tablet PO PRN (15:33)
[2018-05-15 15:47] LABS: Alanine Aminotransferase 20 U/L (10-53); Albumin 2.8 g/dL (3.4-5.0); Anion Gap 9 meq/L (5-15); Aspartate Aminotransferase 15 U/L (15-37); Blood Urea Nitrogen 6 mg/dL (7-18); Calcium 8.9 mg/dL (8.5-10.1); Carbon Dioxide 21.6 meq/L (21.0-32.0); Chloride 108 meq/L (98-107); Glomerular Filtration Rate Greater Than 89 mL/min (>89); Glucose,Random 119 mg/dL (74-106); Potassium 3.7 meq/L (3.5-5.1); Sodium 139 meq/L (136-145)
[2018-05-15 15:57] LABS: Alkaline Phosphatase 129 U/L (45-117); Free T4 (Free Thyroxine) 0.79 ng/dL (0.76-1.46); Total Protein 7.6 g/dL (6.4-8.2)
[2018-05-15] MEDS: Ferrous Sulfate 325 MG Tablet PO SCH (21:11)
[2018-05-16] MEDS: Acetaminophen 325 MG Tablet PO PRN ×2 (00:19→16:21)
[2018-05-16] MEDS: Levothyroxine 75 MCG Tablet PO SCH (06:16)
[2018-05-16] MEDS: Levothyroxine 100 MCG Tablet PO SCH (06:16)
--- NOTE | 2018-05-16 08:51 | P.OBANTE ---
Subjective Interval History: Ms. Judd is a 27yo at 31/5 with diagnosis of GDM. She reports no overnight events. She reports that she is very hungry this am. She denies chest pain, leg pain, nausea, vomiting, diarrhea. She has been OOB without dizziness and only minimal SOB. She has many questions about insulin. Objective Vital Signs and I&O: Vital Signs 05/15/18 12:38 05/15/18 13:00 05/15/18 18:00 Temperature 98.0 F 97.5 F L Pulse Rate 102 H 89 Respiratory Rate 19 18 Blood Pressure 140/63 102/37 L 05/15/18 19:52 05/15/18 19:54 05/16/18 00:15 Temperature 97.3 F L 97.7 F Pulse Rate 91 H Respiratory Rate 18 Blood Pressure 124/49 L 05/16/18 00:16 05/16/18 00:17 05/16/18 04:19 Temperature 98.1 F Pulse Rate 87 104 H Respiratory Rate 16 18 Blood Pressure 110/46 L 138/66 05/16/18 08:37 05/16/18 08:38 Temperature 98.2 F Pulse Rate 114 H Respiratory Rate 18 Blood Pressure 146/77 H Intake & Output 05/15/18 05/16/18 05/16/18 18:59 06:59 18:59 Weight 141.067 kg Other: Weight On Admission 141.067 kg Lab and Micro Results: Laboratory Results - last 24 hr 05/15/18 05/15/18 05/15/18 12:40 12:40 14:19 WBC 11.8 H RBC 4.20 Hgb 11.1 L Hct 33.2 L MCV 79.0 L MCH 26.3 L MCHC 33.3 RDW 18.3 H Plt Count 292 MPV 8.1 Neut % (Auto) 72.8 H Lymph % (Auto) 18.9 [place] % (Auto) 5.7 Eos % (Auto) 2.3 Baso % (Auto) 0.3 Neut # (Auto) 8.6 H Lymph # (Auto) 2.2 [place] # (Auto) 0.7 Eos # (Auto) 0.3 Baso # (Auto) 0.0 WBC Differential . Differential Comment Auto diff final Sodium Potassium Chloride Carbon Dioxide Anion Gap BUN Creatinine Estimated GFR POC Glucose Random Glucose Calcium Total Bilirubin AST ALT Alkaline Phosphatase Total Protein Albumin TSH Free T4 Urine Color Yellow Urine Clarity Cloudy H Urine pH 6.0 Ur Specific [place] 1.019 Urine Protein Negative Urine Glucose (UA) 50 Urine Ketones Trace H Urine Occult Blood Negative Urine Nitrate Negative Urine Bilirubin Negative Urine Urobilinogen Less than 2 Ur Leukocyte Esterase Moderate H Urine RBC 2 Urine WBC 4 Ur Squamous Epith Cells 4 Calcium Oxalate Crystal Many H Urine Bacteria Rare H Urine Mucus Few H Micro UA Comment Culture not ind Urine Culture Comments Culture not ind Urine Opiates Screen Neg Ur Barbiturates Screen Neg Ur Amphetamine Screen Neg U Benzodiazepines Scrn Neg Urine Cocaine Screen Neg U Cannabinoids Screen Pos H 05/15/18 05/15/18 05/15/18 14:19 16:10 20:50 WBC RBC Hgb Hct MCV MCH MCHC RDW Plt Count MPV Neut % (Auto) Lymph % (Auto) [place] % (Auto) Eos % (Auto) Baso % (Auto) Neut # (Auto) Lymph # (Auto) [place] # (Auto) Eos # (Auto) Baso # (Auto) WBC Differential Differential Comment Sodium 139 Potassium 3.7 Chloride 108 H Carbon Dioxide 21.6 Anion Gap 9 BUN 6 L Creatinine 0.61 Estimated GFR Greater than 89 POC Glucose 83 95 Random Glucose 119 H Calcium 8.9 Total Bilirubin 0.1 L AST 15 ALT 20 Alkaline Phosphatase 129 H Total Protein 7.6 Albumin 2.8 L TSH 3.550 Free T4 0.79 Urine Color Urine Clarity Urine pH Ur Specific [place] Urine Protein Urine Glucose (UA) Urine Ketones Urine Occult Blood Urine Nitrate Urine Bilirubin Urine Urobilinogen Ur Leukocyte Esterase Urine RBC Urine WBC Ur Squamous Epith Cells Calcium Oxalate Crystal Urine Bacteria Urine Mucus Micro UA Comment Urine Culture Comments Urine Opiates Screen Ur Barbiturates Screen Ur Amphetamine Screen U Benzodiazepines Scrn Urine Cocaine Screen U Cannabinoids Screen 05/16/18 06:27 WBC RBC Hgb Hct MCV MCH MCHC RDW Plt Count MPV Neut % (Auto) Lymph % (Auto) [place] % (Auto) Eos % (Auto) Baso % (Auto) Neut # (Auto) Lymph # (Auto) [place] # (Auto) Eos # (Auto) Baso # (Auto) WBC Differential Differential Comment Sodium Potassium Chloride Carbon Dioxide Anion Gap BUN Creatinine Estimated GFR POC Glucose 114 H Random Glucose Calcium Total Bilirubin AST ALT Alkaline Phosphatase Total Protein Albumin TSH Free T4 Urine Color Urine Clarity Urine pH Ur Specific [place] Urine Protein Urine Glucose (UA) Urine Ketones Urine Occult Blood Urine Nitrate Urine Bilirubin Urine Urobilinogen Ur Leukocyte Esterase Urine RBC Urine WBC Ur Squamous Epith Cells Calcium Oxalate Crystal Urine Bacteria Urine Mucus Micro UA Comment Urine Culture Comments Urine Opiates Screen Ur Barbiturates Screen Ur Amphetamine Screen U Benzodiazepines Scrn Urine Cocaine Screen U Cannabinoids Screen Physical Exam: GENERAL: Well-nourished, obese, well-developed patient. CARDIOVASCULAR: Regular rate and rhythm without murmurs, gallops, or rubs. RESPIRATORY: Breath sounds equal bilaterally. Decreased likely due to patient's body habitus. No accessory muscle use. ABDOMEN/GI: Abdomen soft, non-tender. Large pannus present GENITOURINARY: External Genitalia: Deferred FHT's: (at 20:55) Category: 1 Baseline: 140 Reactive: yes Variability: moderate Decels: no EXTREMITIES: Minimal pedal edema bilaterally. No cyanosis, non-tender, without signs of DVT. Assessment and Plan - Diagnosis (1) Gestational diabetes mellitus Code(s): O24.419 - Gestational diabetes mellitus in , unspecified control Status: Acute (2) 31 weeks gestation of Code(s): Z3A.31 - 31 weeks gestation of Status: Acute - Plan Ms. Judd is a 27yo morbidly obese at 27/03 here for management of GDM. -Fasting BG this am 114. Increase pm dose of NPH insulin to 20U -NPH 10U in am and 20U in pm -Continue bedside blood glucose fasting, 11:00, 16:00, 21:00 -NST qshift -CMP, CBC, UA unremarkable except for blood sugar of 119 -Diabetic diet -Ambulate as tolerated -SCD's DW Dr. Hernandez and SDW Dr Shaw
[2018-05-16] MEDS ORDERED: Non-Formulary Drug (Prenat.Vits,Cal,Min-Iron-Folic [Prenatal Vitamin] 1 TAB) PO SCH (09:00)
[2018-05-16] MEDS: Ferrous Sulfate 325 MG Tablet PO SCH ×2 (09:29→21:00)
[2018-05-16] MEDS: Prenatal Vit/Ca/Iron/Folic Acid Tablet PO SCH (09:29)
[2018-05-16] MEDS: Docusate Sodium 100 MG Capsule PO SCH (09:29)
--- NOTE | 2018-05-16 15:57 | P.DIET ---
Nutritional Evaluation Type of nutrition evaluation: initial Nutrition screening: [facility] Screening comments: Diet Education Subjective Subjective Comments: Pt provided w/Diet Education for OB Consistent CHO diet Objective - Diagnosis Glucose Monitoring - Objective Dietitian Reviewed in Medical Record: Current diet, Curent medications, Labs Diet Order: OB Consistent CHO Objective Comments: Gestational Diabetes 31/5 weeks gestation Glucose 143 Meds Include: Novolin N, Plus 3 Assessment Assessment: Pt provided w/Diet Education for OB Consistent CHO diet and reading food labels. Pt's questions answered to her satisfaction. RD contact info provided for additional questions as needed. Recommendations: 1.Pt provided w/Diet Education for OB Consistent CHO diet and reading food labels 2.Pt's questions answered to her satisfaction 3.RD contact info provided for additional questions as needed
[2018-05-17] MEDS: Levothyroxine 75 MCG Tablet PO SCH (06:06)
[2018-05-17] MEDS: Levothyroxine 100 MCG Tablet PO SCH (06:06)
[2018-05-17 07:23] VITALS: RESP 20; TEMP 98.5
[2018-05-17 07:24] VITALS: BP 118/81; PULSE 122
--- NOTE | 2018-05-17 09:20 | P.OBANTE ---
Subjective Interval History: No acute events overnight. Patient's blood sugars ranged from 89-115 overnight. She denied any symptoms of hypoglycemia, jitteriness, fatigue, nausea or vomiting or headache. She states she is feeling much better this morning reports improvement in her urinary frequency. She denies any loss of fluid, vaginal bleeding, contractions or decreased movement. Objective Vital Signs and I&O: Vital Signs 05/16/18 14:00 05/16/18 14:08 05/16/18 18:33 Temperature 98.7 F 98.3 F Pulse Rate 106 H 111 H Respiratory Rate 18 Blood Pressure 122/76 132/76 05/16/18 20:46 05/16/18 20:47 05/16/18 21:08 Temperature 98.0 F Pulse Rate 92 H Respiratory Rate 18 Blood Pressure 127/57 L 05/17/18 07:22 Temperature 98.5 F Pulse Rate 122 H Respiratory Rate 20 Blood Pressure 118/81 Lab and Micro Results: Laboratory Results - last 24 hr 05/16/18 05/16/18 05/16/18 11:03 16:01 21:07 POC Glucose 143 H 109 89 05/16/18 05/17/18 23:57 06:10 POC Glucose 115 H 109 Physical Exam: GENERAL: Well-nourished, well-developed patient. CARDIOVASCULAR: Regular rate and rhythm without murmurs, gallops, or rubs. RESPIRATORY: Breath sounds equal bilaterally. No accessory muscle use. ABDOMEN/GI: Abdomen soft, non-tender. Fundus: Consistent with 31 weeks gestation GENITOURINARY: External Genitalia: intact and normal in appearance Uterine Contractions: Absent FHT's: Category: 1 Baseline: 135 Reactive: y Variability: Moderate Decels: Absent EXTREMITIES: No cyanosis or edema, non-tender, without signs of DVT. Assessment and Plan - Plan Ms. Judd is a 27yo morbidly obese at here for management of GDM. -Currently on NPH 10U in am and 20U in pm -Bedside glucose overnight: 2100: 89, 2400: 115, 0600: 109 -Patient reporting decrease in urinary frequency. Asymptomatic at this time -Diabetic diet -We will discharge on current insulin regimen -We will need to follow-up with OB in 1 week - Attending Attestation The exam, history, and the medical decision-making described in the above note were completed with the assistance of the resident physician. I reviewed and agree with the findings presented. I attest that I had a [id number] encounter with the patient on the same day, and personally performed and documented my assessment and findings in the medical record. will d/c home on the regimen listed above. f/u next week with dr. stephens.
[2018-05-17] MEDS: Docusate Sodium 100 MG Capsule PO SCH (09:44)
[2018-05-17] MEDS: Prenatal Vit/Ca/Iron/Folic Acid Tablet PO SCH (09:44)
[2018-05-17] MEDS: Ferrous Sulfate 325 MG Tablet PO SCH (09:44)
== END 2018-05-17 12:07 | disposition home or self-care (01) ==
LOC: H2E 11:41
PROVIDERS: ADMIT Obstetrics & Gynecology Maternal & Fetal Medicine; ATTEND Obstetrics & Gynecology Maternal & Fetal Medicine
DX: E03.9 Hypothyroidism, unspecified; Z68.43 Body mass index [BMI] 50.0-59.9, adult; O40.3XX0 Polyhydramnios, third trimester, not applicable or unspecified; Z3A.31 31 weeks gestation of pregnancy; O99.283 Endocrine, nutritional and metabolic diseases complicating pregnancy, third trimester; O24.410 Gestational diabetes mellitus in pregnancy, diet controlled; E66.01 Morbid (severe) obesity due to excess calories; O99.213 Obesity complicating pregnancy, third trimester

== ENCOUNTER 2018-07-11 11:16 | Inpatient (IN) ==
[2018-07-11] MEDS ORDERED: Oxytocin 30 Units/500ml Premix 30 UNITS/500 ML BAG IV.SIG ONE (11:38)
[2018-07-11] MEDS ORDERED: Naloxone Inj 0.4 MG/ML Vial IV.PUSH PRN (11:38)
[2018-07-11] MEDS ORDERED: fentaNYL Citrate Inj 100 MCG/2 ML Ampul IV.PUSH PRN ×2 (11:38)
[2018-07-11] MEDS ORDERED: Sod Chloride 0.9% Inj 1,000 ML IV.CONT PRN (11:38)
[2018-07-11] MEDS ORDERED: Sodium Chlor 0.9% Inj 500 ML IV.SIG PRN (11:38)
--- NOTE | 2018-07-11 11:44 | P.HPOB ---
History of Present Illness Primary Care Physician: No Primary Care Physician History of Present Illness: 27-year-old female at 38 and 6 days presents to emergency room with SROM that happened at 10 AM this morning. The fluid is clear in color. Was seen in the ED yesterday and sent home on Macrobid for a UTI. She has not taken her Antibiotics this morning nor did she take her insulin. She denies any vaginal bleeding. She confirms feeling contractions every 10 Mins that started around 9 AM . Confirms movements. She was last seen by Dr. Mejia on 07/07. She has had a complicated course consisted of gestational diabetes on insulin. She states that her sugars are under 120. LGA and mild polyhydramnios. She is followed by MFM who has scheduled for an induction on Saturday. She is Rh- and GBS negative. ObHx: Spontaneous . Meds: Levothyroxine, vitamins, insulin (Humalog 12 units with meals and Novolin 48 in the morning, 18 units at night). Past medical history: Hypothyroidism, anxiety. Hiatal and Umbilical Hernia ( not repaired). SH: Positive for marijuana use 1 week ago. ROS: She denies any chest pain, shortness of breath, abdominal pain. PMFSH - History History Provided By: Patient - Medical History Medical History: Medical History (Last Updated 06/25/18 @ 13:47 by Iván Hernandez MD) GDM (gestational diabetes mellitus) Hypothyroid Obesity affecting Prediabetes Umbilical hernia - Tobacco History Second Hand Smoke Exposure: No Smoking Status: Never smoker - Alcohol History How Often Do You Have a Drink Containing Alcohol: Never - Substance Use History Substance History: No History of Abuse - Travel History History of Recent Travel: No Medications and Allergies Active Medications: Active Medications Sodium Chloride (Ns Flush) 2 ml IV.FLUSH BID ZEB Sodium Chloride (Ns Flush) 2 ml IV.FLUSH PRN PRN PRN Reason: FLUSH AFTER USING IV ACCESS Allergies Allergy/AdvReac Type Severity Reaction Status Date / Time ibuprofen Allergy Intermediate Swelling Verified 06/11/18 15:44 tramadol Allergy Difficulty Verified 06/11/18 15:44 Breathing Home Medications Medication Instructions Recorded Confirmed Type levothyroxine [Synthroid] 175 mcg PO DAILY 04/27/18 06/11/18 History prenat.vits,salma,cbn-rqlk-kwlce 1 tab PO DAILY 04/27/18 06/11/18 History [ Vitamin] diphenhydramine HCl [Benadryl] 25 mg PO Q4-6H PRN 05/15/18 06/11/18 History Exam Narrative: GENERAL: Well-nourished, well-developed patient. SKIN: Warm and dry. HEAD: Normocephalic and atraumatic. CARDIOVASCULAR: Regular rate and rhythm without murmurs, gallops, or rubs. RESPIRATORY: Breath sounds equal bilaterally. No accessory muscle use. ABDOMEN/GI: Abdomen soft, non-tender, bowel sounds present, no rebound, no guarding Gravid to 35 weeks size Cervical Exam: /-3 EXTREMITIES: +2 edema b/l. Assessment and Plan - Plan 19-year-old female at 38+6 presents to emergency room with SROM that happened at 10AM this morning. Gest Diabetes. She confirms contractions q 10 mins. Rh-. GBS negative. - Admitted to L&D for Labor. - +SROM - EFM/[place]: Continue to monitor. - Cervical Check /-2. - Liquid Diet: Clear Fluids. - IV LR @ 125 ml/hr - Gestational Diabetes. Start on Insulin Drip. Accucheck q 2 hours. - CBC/T&S/OB Drug Screen/UA/CMP - Discussed with Dr. Hernandez.
[2018-07-11] MEDS ORDERED: Citric Acid/Sodium Citrate Liq 30 ML UDC PO SCH (11:45)
[2018-07-11 11:57] LABS: Baso # (Auto) 0.1 th/mm3 (0.0-0.2); Baso % (Auto) 0.8 % (0.0-2.0); Eos # (Auto) 0.2 th/mm3 (0.0-0.4); Eos % (Auto) 1.7 % (0.0-4.0); Hematocrit 36.3 % (35.0-46.0); Hemoglobin 12.1 gm/dL (11.6-15.3); Lymph # (Auto) 2.3 th/mm3 (1.0-4.8); Mean Corpuscular HGB Conc 33.3 % (32.0-36.0); Mean Corpuscular Hemoglobin 26.4 pg (27.0-34.0); Mean Corpuscular Volume 79.4 fL (80.0-100.0); Mean Platelet Volume 8.5 fL (7.0-11.0); Mono # (Auto) 0.8 th/mm3 (0.0-0.9); Mono % (Auto) 5.6 % (0.0-8.0); Neut # (Auto) 10.9 th/mm3 (1.8-7.7); Neut % (Auto) 75.9 % (16.0-70.0); Platelet Count 223 th/mm3 (150-450); Red Blood Count 4.57 mil/mm3 (4.00-5.30); White Blood Count 14.3 th/mm3 (4.0-11.0)
[2018-07-11 12:20] LABS: Albumin 2.5 g/dL (3.4-5.0); Anion Gap 11 meq/L (5-15); Aspartate Aminotransferase 14 U/L (15-37); Blood Urea Nitrogen 9 mg/dL (7-18); Calcium 9.2 mg/dL (8.5-10.1); Carbon Dioxide 18.9 meq/L (21.0-32.0); Chloride 107 meq/L (98-107); Glomerular Filtration Rate Greater Than 89 mL/min (>89); Glucose,Random 83 mg/dL (74-106); Potassium 3.9 meq/L (3.5-5.1); Sodium 137 meq/L (136-145)
[2018-07-11 12:21] LABS: Alanine Aminotransferase 12 U/L (10-53)
[2018-07-11 12:23] LABS: Alkaline Phosphatase 201 U/L (45-117); Total Protein 7.6 g/dL (6.4-8.2)
[2018-07-11 12:59] LABS: Bilirubin,Urine Negative (Negative); Clarity,Urine Clear (Clear); Color,Urine Yellow (Yellw/Straw); Glucose,Urine (UA) Negative (Negative); Leukocyte Esterase,Urine Negative (Negative); Nitrite,Urine Negative (Negative); Urobilinogen,Urine 0.2 mg/dL (Less than 2)
[2018-07-11 13:05] LABS: Amphetamine Urine With Conf Neg (Neg); Benzodiazepine Urine With Conf Neg (Neg)
[2018-07-11 13:08] LABS: Specific Gravity,Urine 1.022 (1.002-1.035)
[2018-07-11 13:19] LABS: Mucus,Urine Few /lpf (Occasional); Squamous Epithelial Cell,Urine 0-5 /hpf (0-5)
[2018-07-11] MEDS ORDERED: fentaNYL 2MCG-Bupiv 0.125% Epi 150 ML EPIDURAL ONE (15:00)
[2018-07-11] MEDS ORDERED: Lidocaine PF 1% Inj 5 ML Vial ONE (15:04)
[2018-07-11] MEDS ORDERED: Lidocaaine 1.5%/Epinephrine 1:200,000 PF Inj 5 ML Amp ONE (15:04)
[2018-07-11] MEDS ORDERED: fentaNYL Citrate Inj 100 MCG/2 ML Ampul EPIDURAL ONE (16:13)
[2018-07-11] MEDS ORDERED: fentaNYL 2MCG-Bupiv 0.125% Epi 150 ML EPIDURAL PRN (16:13)
--- NOTE | 2018-07-11 16:54 | P.OBLABOR ---
Subjective Interval history: Patient seen and examined at bedside. Just received her epidural. Resting comfortably. Objective Vital Signs: Vital Signs - 8 hr 07/11/18 11:34 07/11/18 13:10 07/11/18 13:35 Temperature 98.2 F Pulse Rate 93 H 86 89 Respiratory Rate Blood Pressure 147/90 H 121/80 07/11/18 13:40 07/11/18 13:45 07/11/18 14:20 Temperature Pulse Rate 101 H 100 H 91 H Respiratory Rate 18 Blood Pressure 135/94 H 135/91 H 07/11/18 14:25 07/11/18 14:35 07/11/18 14:45 Temperature Pulse Rate 95 H 98 H 89 Respiratory Rate Blood Pressure 147/88 H 130/81 07/11/18 14:55 07/11/18 15:11 07/11/18 15:56 Temperature Pulse Rate 98 H 126 H Respiratory Rate 4 L Blood Pressure 133/60 144/83 H 07/11/18 16:00 07/11/18 16:10 Temperature Pulse Rate 104 H Respiratory Rate 16 Blood Pressure 137/67 Objective: Pelvic Exam: Cervix: anterior Dilatation: 6cm Effacement: 70 Station: -1 Presentation: cephalic Membranes: ruptured Uterine Contractions: q 3 mins FHT's: Category: two Baseline: 155 bmp Reactive: yes Variability: moderate Decels: variables Assessment and Plan - Plan 19-year-old female at 38+6 in active labor. Cat 2 tracing. Variables Decels. s/p epidural placement - Patient being repositioned. - Cervical Check: /-1 - EFM/[place]: Continue to monitor. - Accucheck: 78. Patient given juice. - Liquid Diet: Clear Fluids. - IV LR @ 125 ml/hr - Gestational Diabetes. Accucheck q 2 hours. - Anticipate . - Discussed with Dr. Hernandez.
[2018-07-11] MEDS ORDERED: Oxytocin 30 Units/500ml Premix 30 UNITS/500 ML BAG IV.SIG PRN (18:04)
[2018-07-11] MEDS: Acetaminophen 325 MG Tablet PO PRN (19:32)
[2018-07-11] MEDS ORDERED: Lidocaine 1% Inj 50 ML Vial ONE (20:51)
[2018-07-11] MEDS ORDERED: Bupivacaine PF 0.25% Inj 10 ML Vial ONE (22:43)
[2018-07-11] MEDS ORDERED: fentaNYL Citrate Inj 100 MCG/2 ML Ampul ONE (22:43)
[2018-07-12 01:15] LABS: Cord Arterial Blood HCO3 19.8
[2018-07-12] MEDS: Acetaminophen 325 MG Tablet PO PRN (03:11)
[2018-07-12] MEDS ORDERED: Naloxone Inj 0.4 MG/ML Vial IV.PUSH PRN (04:13)
[2018-07-12] MEDS ORDERED: Oxytocin 30 Units/500ml Premix 30 UNITS/500 ML BAG IV.CONT PRN (04:13)
[2018-07-12] MEDS ORDERED: Benzocaine 20% Top Spray 60 ML Can TOPICAL PRN (04:13)
[2018-07-12] MEDS ORDERED: Acetaminophen 325 MG Tablet PO PRN (04:13)
[2018-07-12] MEDS ORDERED: Bisacodyl 10 MG Supp RECTAL PRN (04:13)
--- NOTE | 2018-07-12 04:30 | P.OBDELI ---
Weeks Gestation: 39 Anesthesia: Epidural, Lidocaine local to perineum Episiotomy: none Vaginal Delivery: Normal Presentation: Occiput anterior, Vertex Nuchal Cord: None Delayed Cord Clamping (45 sec): No (The baby needed emergent resuscitation efforts) Placenta: Spontaneous delivery Laceration: Vaginal, 2 deg Repair: Chromic running Estimated blood loss (mL): 200 Infant: Male Male A Delivery Date: 07/12/18 Delivery Time: 01:02 Weight: 4.39 kg score (1 min): 1 score (5 min): 5 score (10 min): 7 (cord ph 7.05 showing resp acidosis) Additional Information: meconium moderate
[2018-07-12] MEDS: Witch Hazel 50%/Glyderin 12.5% 40 Pad Jar RECTAL PRN (05:00)
[2018-07-12] MEDS: Zolpidem Tartrate 5 MG Tablet PO PRN (05:09)
[2018-07-12] MEDS: Levothyroxine 75 MCG Tablet PO SCH (06:35)
[2018-07-12] MEDS: Levothyroxine 100 MCG Tablet PO SCH (06:35)
[2018-07-12 08:06] LABS: Calcium 8.8 mg/dL (8.5-10.1); Carbon Dioxide 18.9 meq/L (21.0-32.0); Potassium 3.8 meq/L (3.5-5.1)
[2018-07-12] MEDS ORDERED: Dextrose 50% in Water 50 ML Vial IV.PUSH PRN (10:23)
[2018-07-12] MEDS ORDERED: Insulin NovoLOG Aspart Correctional Sugar Inj SQ SCH (13:00)
[2018-07-12] MEDS ORDERED: Measles/Mumps/Rubella Vaccine Inj 0.5 ML Vial SQ ONE (16:00)
[2018-07-12] MEDS ORDERED: Diphtheria/Tetanus/Pertussis Vaccine Inj 0.5 ML Syringe IM ONE (16:00)
[2018-07-12] MEDS: Senna/Docusate Sodium 8.6/50 MG Tablet PO SCH ×2 (18:12→21:30)
[2018-07-13] MEDS: Zolpidem Tartrate 5 MG Tablet PO PRN (00:06)
[2018-07-13] MEDS: Witch Hazel 50%/Glyderin 12.5% 40 Pad Jar RECTAL PRN (04:25)
[2018-07-13] MEDS: Levothyroxine 75 MCG Tablet PO SCH (06:34)
[2018-07-13] MEDS: Levothyroxine 100 MCG Tablet PO SCH (06:34)
--- NOTE | 2018-07-13 07:42 | P.PNOB ---
Subjective Interval history: Patient is a 27 year-old delivered at 38 weeks and 6 days. Patient is day 1 after . Patient's pain is well-controlled. Patient reports eating and drinking without any nausea or vomiting. Patient reports minimal bleeding. Patient complains of urinary incontinence, but states she has not been trying to get up to go to the bathroom actively. Last urinary episode, patient was able to void in the bathroom appropriately. She understands the need to get out of bed, and will try to ambulate and urinate every 3 hours regardless of urgency. Patient has passed gas and had a bowel movements. Patient is walking without lower extremity pain or shortness of breath. Patient reports desire for depo contraception and bottle feeding for a week. She will switch to after. Objective Vital Signs/I&O: Vital Signs 07/12/18 08:00 07/12/18 08:37 07/12/18 21:00 Temperature 98.0 F 98.6 F Pulse Rate 125 H 108 H 100 H Respiratory Rate 20 20 Blood Pressure 136/94 H 147/97 H Result Diagrams: 07/11/18 11:46 07/12/18 07:23 Objective Remarks: GENERAL: Well-nourished, well-developed patient. CARDIOVASCULAR: Regular rate and rhythm without murmurs, gallops, or rubs. RESPIRATORY: Breath sounds equal bilaterally. No accessory muscle use. ABDOMEN/GI: Abdomen soft, non-tender. Fundus: Unable to palpate due to large pannus. GENITOURINARY: Light to moderate bleeding. EXTREMITIES: No cyanosis or edema, non-tender, without signs of DVT. Medications and IVs: Active Medications Acetaminophen (Tylenol) 650 mg PO Q4H PRN PRN Reason: HEADACHE Last Admin: 07/12/18 03:11 Dose: 650 mg Acetaminophen (Tylenol) 650 mg PO Q4H PRN PRN Reason: PAIN SCALE 1 TO 2 Al Hydroxide/Mg Hydroxide (Milk Of Magnesia Liq) 30 ml PO Q12H PRN PRN Reason: Mild Constipation Benzocaine (Americaine 20% Top [place]) 1 spray TOPICAL Q4H PRN PRN Reason: For Perineum Discomfort Last Admin: 07/12/18 05:00 Dose: 1 spray Bisacodyl (Dulcolax Supp) 10 mg RECTAL DAILY PRN PRN Reason: SEVERE CONSITIPATION Citric Acid/Sodium Citrate (Sodium Citrate/Citric Acid Liq) 30 ml PO PLASTIC DESIGN APPLIER [facility] Stop: 07/15/18 11:44 Dextrose (D50w Vial) 50 ml IV.PUSH UNSCH PRN PRN Reason: PER HYPOGLYCEMIA PROTOCOL Fentanyl Citrate (Fentanyl Inj) 50 mcg IV.PUSH Q1H PRN PRN Reason: Pain Scale 3 - 5 Fentanyl Citrate (Fentanyl Inj) 100 mcg IV.PUSH Q1H PRN PRN Reason: PAIN SCALE 6 TO 10 Last Admin: 07/11/18 13:41 Dose: 100 mcg Glucagon (Glucagon Inj) 1 mg OTHER PRN PRN PRN Reason: for Hypoglycemia Protocol Lactated Ringer's (Lr 1000 Ml Inj) 1,000 mls @ 125 mls/hr IV.CONT .Q8H [facility] Last Admin: 07/12/18 03:06 Dose: 125 mls/hr Lactated Ringer's (Lr 1000 Ml Inj) 1,000 mls @ 3,000 mls/hr IV.SIG UNSCH PRN PRN Reason: compromise or epidural Last Admin: 07/11/18 15:11 Dose: 3,000 mls/hr Sodium Chloride (Ns Inj) 500 mls @ 1,000 mls/hr IV.SIG UNSCH PRN PRN Reason: SEE LABEL COMMENTS Sodium Chloride (Ns Inj) 1,000 mls @ 100 mls/hr IV.CONT .Q10H PRN PRN Reason: SEE LABEL COMMENTS Fentanyl/Bupivacaine/Sodium Chlor (Fentanyl 2 Mcg-Bupiv 0.125% Epi) 150 mls @ 8 mls/hr EPIDURAL PRN PRN PRN Reason: for Labor Pain Last Admin: 07/11/18 19:18 Dose: 8 mls/hr Oxytocin (Pitocin 30 Units/Ns 500 Ml Premix) 30 units in 500 mls @ 2 mls/hr IV.SIG TITRATE PRN; Protocol PRN Reason: For induction of labor Last Admin: 07/11/18 18:21 Dose: 2 milliunit/min, 2 mls/hr Oxytocin (Pitocin 30 Units/Ns 500 Ml Premix) 30 units in 500 mls @ 100 mls/hr IV.CONT UNSCH PRN PRN Reason: Heavy bleeding Ibuprofen (Motrin) 800 mg PO Q8H PRN PRN Reason: For Cramping Insulin Aspart (Novolog Insulin Correctional Sugar Inj) 0 unit SQ 07,13,19,01 [facility]; Protocol Lactulose (Lactulose Liq) 30 ml PO DAILY PRN PRN Reason: SEVERE CONSITIPATION Levothyroxine Sodium (Synthroid) 100 mcg PO DAILY@0600 [facility] Last Admin: 07/13/18 06:34 Dose: 100 mcg Levothyroxine Sodium (Synthroid) 75 mcg PO DAILY@0600 [facility] Last Admin: 07/13/18 06:34 Dose: 75 mcg Lidocaine HCl (Xylocaine 1% Inj) 0.1 ml I-DERMAL PRN PRN PRN Reason: For IV start Stop: 07/14/18 11:37 Lidocaine HCl (Xylocaine 1% Inj) 10 ml INFILTRATN PRN PRN PRN Reason: For episiotomy repair Stop: 07/13/18 11:37 Mineral Oil (Muri-Lube Oil) 10 ml TOPICAL PRN PRN PRN Reason: PRN perineal massage Naloxone HCl (Narcan Inj) 0.1 mg IV.PUSH Q2M PRN PRN Reason: for opiate reversal Naloxone HCl (Narcan Inj) 0.1 mg IV.PUSH Q2M PRN PRN Reason: for opiate reversal Ondansetron HCl (Zofran Odt) 4 mg PO Q6H PRN PRN Reason: NAUSEA OR VOMITING Oxycodone/Acetaminophen (Percocet 5/325 Mg) 1 tab PO Q4H PRN PRN Reason: PAIN SCALE 3 TO 5 Last Admin: 07/13/18 04:23 Dose: 1 tab Senna/Docusate Sodium (Natasha-Colace) 1 tab PO BID [facility] Last Admin: 07/12/18 21:30 Dose: Not Given Sennosides (Senokot) 17.2 mg PO Q12H PRN PRN Reason: Moderate Constipation Sodium Chloride (Ns Flush) 2 ml IV.FLUSH BID [facility] Sodium Chloride (Ns Flush) 2 ml IV.FLUSH PRN PRN PRN Reason: FLUSH AFTER USING IV ACCESS Witch Vika/Glycerin (Tucks Pads) 1 applicatio RECTAL QID PRN PRN Reason: HEMORRHOIDS Last Admin: 07/13/18 04:25 Dose: 1 applicatio Zolpidem Tartrate (Ambien) 5 mg PO HS PRN PRN Reason: SLEEP Last Admin: 07/13/18 00:06 Dose: 5 mg Assessment and Plan - Plan Patient is a 27 year-old delivered at 38 weeks and 6 days. Patient is day 1 after . Continue routine care. Motrin and Percocet when necessary for pain. Encourage OOB Pelvic rest for 6 weeks will need follow-up appointment at that time. Contraception: Depo shot appropriately. Anticipate discharge tomorrow Discussed with Dr. Jackson.
[2018-07-13] MEDS ORDERED: Acetaminophen 325 MG Tablet PO PRN (08:43)
[2018-07-13] MEDS ORDERED: medroxyPROGESTERone Acetate Inj 150 MG/ML Syringe IM ONE (09:00)
[2018-07-13] MEDS: Senna/Docusate Sodium 8.6/50 MG Tablet PO SCH ×2 (18:06→22:39)
[2018-07-14] MEDS: Zolpidem Tartrate 5 MG Tablet PO PRN (01:40)
[2018-07-14] MEDS: Levothyroxine 75 MCG Tablet PO SCH (06:33)
[2018-07-14] MEDS: Levothyroxine 100 MCG Tablet PO SCH (06:33)
--- NOTE | 2018-07-14 08:50 | P.PNOB ---
Subjective Interval history: Patient is a 27 year-old delivered at 38 weeks and 6 days. Patient is day 2 after . Patient's pain is well-controlled. Patient reports eating and drinking without any nausea or vomiting. Patient reports minimal bleeding. Patient has passed gas but no bowel movements. Patient is walking without lower extremity pain or shortness of breath. Patient desires depo for contraception and will be breast-feeding in 2 weeks. Objective Vital Signs/I&O: Vital Signs 07/13/18 12:47 07/13/18 14:00 07/13/18 22:15 Temperature 98.5 F 98.5 F 98.1 F Pulse Rate 114 H 114 H 93 H Respiratory Rate 16 16 20 Blood Pressure 132/89 132/89 112/64 07/14/18 08:00 Temperature 98.6 F Pulse Rate 109 H Respiratory Rate 18 Blood Pressure 151/89 H Intake & Output 07/13/18 07/14/18 07/14/18 18:59 06:59 18:59 Intake Total 0 / 0 Balance 0 / 0 Intake: Intake (Blood Product) Amt 0 / 0 Rho(D) Immune Globulin Unit 0 / 0 [id number] Result Diagrams: 07/11/18 11:46 07/12/18 07:23 Objective Remarks: GENERAL: Well-nourished, well-developed patient. CARDIOVASCULAR: Regular rate and rhythm without murmurs, gallops, or rubs. RESPIRATORY: Breath sounds equal bilaterally. No accessory muscle use. ABDOMEN/GI: Abdomen soft, non-tender, bowel sounds present. Incision: Clean, dry and intact. Fundus: Firm, non-tender at umbilicus. GENITOURINARY: Light to moderate bleeding. EXTREMITIES: No cyanosis or edema, non-tender, without signs of DVT. Medications and IVs: Active Medications Acetaminophen (Tylenol) 650 mg PO Q4H PRN PRN Reason: HEADACHE Last Admin: 07/12/18 03:11 Dose: 650 mg Acetaminophen (Tylenol) 650 mg PO Q4H PRN PRN Reason: PAIN SCALE 1 TO 2 Al Hydroxide/Mg Hydroxide (Milk Of Magnesia Liq) 30 ml PO Q12H PRN PRN Reason: Mild Constipation Benzocaine (Americaine 20% Top [place]) 1 spray TOPICAL Q4H PRN PRN Reason: For Perineum Discomfort Last Admin: 07/12/18 05:00 Dose: 1 spray Bisacodyl (Dulcolax Supp) 10 mg RECTAL DAILY PRN PRN Reason: SEVERE CONSITIPATION Citric Acid/Sodium Citrate (Sodium Citrate/Citric Acid Liq) 30 ml PO REVIEW ASSISTANT [facility] Stop: 07/15/18 11:44 Dextrose (D50w Vial) 50 ml IV.PUSH UNSCH PRN PRN Reason: PER HYPOGLYCEMIA PROTOCOL Fentanyl Citrate (Fentanyl Inj) 50 mcg IV.PUSH Q1H PRN PRN Reason: Pain Scale 3 - 5 Fentanyl Citrate (Fentanyl Inj) 100 mcg IV.PUSH Q1H PRN PRN Reason: PAIN SCALE 6 TO 10 Last Admin: 07/11/18 13:41 Dose: 100 mcg Glucagon (Glucagon Inj) 1 mg OTHER PRN PRN PRN Reason: for Hypoglycemia Protocol Lactated Ringer's (Lr 1000 Ml Inj) 1,000 mls @ 125 mls/hr IV.CONT .Q8H [facility] Last Admin: 07/12/18 03:06 Dose: 125 mls/hr Lactated Ringer's (Lr 1000 Ml Inj) 1,000 mls @ 3,000 mls/hr IV.SIG UNSCH PRN PRN Reason: compromise or epidural Last Admin: 07/11/18 15:11 Dose: 3,000 mls/hr Sodium Chloride (Ns Inj) 500 mls @ 1,000 mls/hr IV.SIG UNSCH PRN PRN Reason: SEE LABEL COMMENTS Sodium Chloride (Ns Inj) 1,000 mls @ 100 mls/hr IV.CONT .Q10H PRN PRN Reason: SEE LABEL COMMENTS Fentanyl/Bupivacaine/Sodium Chlor (Fentanyl 2 Mcg-Bupiv 0.125% Epi) 150 mls @ 8 mls/hr EPIDURAL PRN PRN PRN Reason: for Labor Pain Last Admin: 07/11/18 19:18 Dose: 8 mls/hr Oxytocin (Pitocin 30 Units/Ns 500 Ml Premix) 30 units in 500 mls @ 2 mls/hr IV.SIG TITRATE PRN; Protocol PRN Reason: For induction of labor Last Admin: 07/11/18 18:21 Dose: 2 milliunit/min, 2 mls/hr Oxytocin (Pitocin 30 Units/Ns 500 Ml Premix) 30 units in 500 mls @ 100 mls/hr IV.CONT UNSCH PRN PRN Reason: Heavy bleeding Ibuprofen (Motrin) 800 mg PO Q8H PRN PRN Reason: For Cramping Insulin Aspart (Novolog Insulin Correctional Sugar Inj) 0 unit SQ 07,13,19, [facility]; Protocol Lactulose (Lactulose Liq) 30 ml PO DAILY PRN PRN Reason: SEVERE CONSITIPATION Levothyroxine Sodium (Synthroid) 100 mcg PO DAILY@0600 [facility] Last Admin: 07/14/18 06:33 Dose: 100 mcg Levothyroxine Sodium (Synthroid) 75 mcg PO DAILY@0600 [facility] Last Admin: 07/14/18 06:33 Dose: 75 mcg Lidocaine HCl (Xylocaine 1% Inj) 0.1 ml I-DERMAL PRN PRN PRN Reason: For IV start Stop: 07/14/18 11:37 Mineral Oil (Muri-Lube Oil) 10 ml TOPICAL PRN PRN PRN Reason: PRN perineal massage Naloxone HCl (Narcan Inj) 0.1 mg IV.PUSH Q2M PRN PRN Reason: for opiate reversal Naloxone HCl (Narcan Inj) 0.1 mg IV.PUSH Q2M PRN PRN Reason: for opiate reversal Ondansetron HCl (Zofran Odt) 4 mg PO Q6H PRN PRN Reason: NAUSEA OR VOMITING Oxycodone/Acetaminophen (Percocet 5/325 Mg) 1 tab PO Q4H PRN PRN Reason: PAIN SCALE 3 TO 5 Last Admin: 07/14/18 06:42 Dose: 1 tab Oxycodone/Acetaminophen (Percocet 5/325 Mg) 2 tab PO Q4H PRN PRN Reason: PAIN SCALE 6 TO 10 Last Admin: 07/13/18 18:04 Dose: 2 tab Senna/Docusate Sodium (Natasha-Colace) 1 tab PO BID [facility] Last Admin: 07/13/18 22:39 Dose: 1 tab Sennosides (Senokot) 17.2 mg PO Q12H PRN PRN Reason: Moderate Constipation Sodium Chloride (Ns Flush) 2 ml IV.FLUSH BID [facility] Sodium Chloride (Ns Flush) 2 ml IV.FLUSH PRN PRN PRN Reason: FLUSH AFTER USING IV ACCESS Witch Vika/Glycerin (Tucks Pads) 1 applicatio RECTAL QID PRN PRN Reason: HEMORRHOIDS Last Admin: 07/13/18 04:25 Dose: 1 applicatio Zolpidem Tartrate (Ambien) 5 mg PO HS PRN PRN Reason: SLEEP Last Admin: 07/14/18 01:40 Dose: 5 mg Assessment and Plan - Plan Patient is a 27 year-old delivered at 38 weeks and 6 days. Patient is day 1 after . Continue routine care. Motrin and Percocet when necessary for pain. Encourage OOB Pelvic rest for 6 weeks will need follow-up appointment at that time. Contraception: Depo shot appropriately. Anticipate discharge tomorrow Discussed with Dr. Jackson.
--- NOTE | 2018-07-14 08:53 | P.PNOB ---
Subjective Interval history: Patient is a 27 year-old delivered at 38 weeks and 6 days. Patient is day 2 after . Patient's pain is well-controlled. Patient reports eating and drinking without any nausea or vomiting. Patient reports minimal bleeding. Patient has passed gas and had bowel movements. Her urinary symptoms from yesterday have resolved. Patient is walking without lower extremity pain or shortness of breath. Patient desires depo for contraception and will be breast-feeding in 2 weeks. Objective Vital Signs/I&O: Vital Signs 07/13/18 12:47 07/13/18 14:00 07/13/18 22:15 Temperature 98.5 F 98.5 F 98.1 F Pulse Rate 114 H 114 H 93 H Respiratory Rate 16 16 20 Blood Pressure 132/89 132/89 112/64 07/14/18 08:00 Temperature 98.6 F Pulse Rate 109 H Respiratory Rate 18 Blood Pressure 151/89 H Intake & Output 07/13/18 07/14/18 07/14/18 18:59 06:59 18:59 Intake Total 0 / 0 Balance 0 / 0 Intake: Intake (Blood Product) Amt 0 / 0 Rho(D) Immune Globulin Unit 0 / 0 [id number] Result Diagrams: 07/11/18 11:46 07/12/18 07:23 Objective Remarks: GENERAL: Well-nourished, well-developed patient. CARDIOVASCULAR: Regular rate and rhythm without murmurs, gallops, or rubs. RESPIRATORY: Breath sounds equal bilaterally. No accessory muscle use. ABDOMEN/GI: Abdomen soft, non-tender. Fundus: Unable to palpate due to body habitus. GENITOURINARY: Light to moderate bleeding. EXTREMITIES: No cyanosis or edema, non-tender, without signs of DVT. Medications and IVs: Active Medications Acetaminophen (Tylenol) 650 mg PO Q4H PRN PRN Reason: HEADACHE Last Admin: 07/12/18 03:11 Dose: 650 mg Acetaminophen (Tylenol) 650 mg PO Q4H PRN PRN Reason: PAIN SCALE 1 TO 2 Al Hydroxide/Mg Hydroxide (Milk Of Magnesia Liq) 30 ml PO Q12H PRN PRN Reason: Mild Constipation Benzocaine (Americaine 20% Top [place]) 1 spray TOPICAL Q4H PRN PRN Reason: For Perineum Discomfort Last Admin: 07/12/18 05:00 Dose: 1 spray Bisacodyl (Dulcolax Supp) 10 mg RECTAL DAILY PRN PRN Reason: SEVERE CONSITIPATION Citric Acid/Sodium Citrate (Sodium Citrate/Citric Acid Liq) 30 ml PO AVID EDITOR [facility] Stop: 07/15/18 11:44 Dextrose (D50w Vial) 50 ml IV.PUSH UNSCH PRN PRN Reason: PER HYPOGLYCEMIA PROTOCOL Fentanyl Citrate (Fentanyl Inj) 50 mcg IV.PUSH Q1H PRN PRN Reason: Pain Scale 3 - 5 Fentanyl Citrate (Fentanyl Inj) 100 mcg IV.PUSH Q1H PRN PRN Reason: PAIN SCALE 6 TO 10 Last Admin: 07/11/18 13:41 Dose: 100 mcg Glucagon (Glucagon Inj) 1 mg OTHER PRN PRN PRN Reason: for Hypoglycemia Protocol Lactated Ringer's (Lr 1000 Ml Inj) 1,000 mls @ 125 mls/hr IV.CONT .Q8H [facility] Last Admin: 07/12/18 03:06 Dose: 125 mls/hr Lactated Ringer's (Lr 1000 Ml Inj) 1,000 mls @ 3,000 mls/hr IV.SIG UNSCH PRN PRN Reason: compromise or epidural Last Admin: 07/11/18 15:11 Dose: 3,000 mls/hr Sodium Chloride (Ns Inj) 500 mls @ 1,000 mls/hr IV.SIG UNSCH PRN PRN Reason: SEE LABEL COMMENTS Sodium Chloride (Ns Inj) 1,000 mls @ 100 mls/hr IV.CONT .Q10H PRN PRN Reason: SEE LABEL COMMENTS Fentanyl/Bupivacaine/Sodium Chlor (Fentanyl 2 Mcg-Bupiv 0.125% Epi) 150 mls @ 8 mls/hr EPIDURAL PRN PRN PRN Reason: for Labor Pain Last Admin: 07/11/18 19:18 Dose: 8 mls/hr Oxytocin (Pitocin 30 Units/Ns 500 Ml Premix) 30 units in 500 mls @ 2 mls/hr IV.SIG TITRATE PRN; Protocol PRN Reason: For induction of labor Last Admin: 07/11/18 18:21 Dose: 2 milliunit/min, 2 mls/hr Oxytocin (Pitocin 30 Units/Ns 500 Ml Premix) 30 units in 500 mls @ 100 mls/hr IV.CONT UNSCH PRN PRN Reason: Heavy bleeding Ibuprofen (Motrin) 800 mg PO Q8H PRN PRN Reason: For Cramping Insulin Aspart (Novolog Insulin Correctional Sugar Inj) 0 unit SQ 07,,, [facility]; Protocol Last Admin: 07/14/18 08:49 Dose: Not Given Lactulose (Lactulose Liq) 30 ml PO DAILY PRN PRN Reason: SEVERE CONSITIPATION Levothyroxine Sodium (Synthroid) 100 mcg PO DAILY@0600 [facility] Last Admin: 07/14/18 06:33 Dose: 100 mcg Levothyroxine Sodium (Synthroid) 75 mcg PO DAILY@0600 [facility] Last Admin: 07/14/18 06:33 Dose: 75 mcg Lidocaine HCl (Xylocaine 1% Inj) 0.1 ml I-DERMAL PRN PRN PRN Reason: For IV start Stop: 07/14/18 11:37 Mineral Oil (Muri-Lube Oil) 10 ml TOPICAL PRN PRN PRN Reason: PRN perineal massage Naloxone HCl (Narcan Inj) 0.1 mg IV.PUSH Q2M PRN PRN Reason: for opiate reversal Naloxone HCl (Narcan Inj) 0.1 mg IV.PUSH Q2M PRN PRN Reason: for opiate reversal Ondansetron HCl (Zofran Odt) 4 mg PO Q6H PRN PRN Reason: NAUSEA OR VOMITING Oxycodone/Acetaminophen (Percocet 5/325 Mg) 1 tab PO Q4H PRN PRN Reason: PAIN SCALE 3 TO 5 Last Admin: 07/14/18 06:42 Dose: 1 tab Oxycodone/Acetaminophen (Percocet 5/325 Mg) 2 tab PO Q4H PRN PRN Reason: PAIN SCALE 6 TO 10 Last Admin: 07/13/18 18:04 Dose: 2 tab Senna/Docusate Sodium (Natasha-Colace) 1 tab PO BID [facility] Last Admin: 07/13/18 22:39 Dose: 1 tab Sennosides (Senokot) 17.2 mg PO Q12H PRN PRN Reason: Moderate Constipation Sodium Chloride (Ns Flush) 2 ml IV.FLUSH BID [facility] Sodium Chloride (Ns Flush) 2 ml IV.FLUSH PRN PRN PRN Reason: FLUSH AFTER USING IV ACCESS Witch Vika/Glycerin (Tucks Pads) 1 applicatio RECTAL QID PRN PRN Reason: HEMORRHOIDS Last Admin: 07/13/18 04:25 Dose: 1 applicatio Zolpidem Tartrate (Ambien) 5 mg PO HS PRN PRN Reason: SLEEP Last Admin: 07/14/18 01:40 Dose: 5 mg Assessment and Plan - Plan Patient is a 27 year-old delivered at 38 weeks and 6 days. Patient is day 2 after . Continue routine care. Motrin and Percocet when necessary for pain. Encourage OOB Pelvic rest for 6 weeks will need follow-up appointment at that time. Contraception: Depo shot appropriately. Anticipate discharge today Discussed with Dr. Hernandez.
== END 2018-07-14 13:35 | disposition home or self-care (01) ==
LOC: HOBED 11:17 → H2E 11:23 → H1EA 07-12 04:53
PROVIDERS: ADMIT Obstetrics & Gynecology Maternal & Fetal Medicine; ATTEND Obstetrics & Gynecology Maternal & Fetal Medicine

== ENCOUNTER 2018-07-18 08:33 | Inpatient (IN) ==
[2018-07-18] MEDS ORDERED: Acetaminophen 325 MG Tablet PO PRN (11:00)
[2018-07-18] MEDS ORDERED: Bisacodyl 10 MG Supp RECTAL PRN (11:00)
[2018-07-18] MEDS ORDERED: Gentamicin Consult Pharmacy 1 EACH OTHER SCH (12:00)
[2018-07-18] MEDS: Enoxaparin Inj 40 MG/0.4 ML Syringe SQ SCH (12:12)
[2018-07-18] MEDS: Ampicillin/Sulbactam Inj 3 GM in Sodium Chloride 0.9% Inj 100 ML IV.SIG SCH ×3 (12:13→23:41)
[2018-07-18] MEDS: Ketorolac Inj 30 MG/ML (IVP) Vial IV.PUSH PRN ×3 (12:14→23:39)
[2018-07-18 13:45] LABS: Baso % (Auto) 0.4 % (0.0-2.0); Eos # (Auto) 0.3 th/mm3 (0.0-0.4); Eos % (Auto) 3.8 % (0.0-4.0); Hematocrit 28.3 % (35.0-46.0); Hemoglobin 9.5 gm/dL (11.6-15.3); Lymph # (Auto) 1.2 th/mm3 (1.0-4.8); Lymph % (Auto) 13.7 % (9.0-44.0); Mean Corpuscular HGB Conc 33.5 % (32.0-36.0); Mean Corpuscular Hemoglobin 26.6 pg (27.0-34.0); Mean Corpuscular Volume 79.2 fL (80.0-100.0); Mean Platelet Volume 6.7 fL (7.0-11.0); Mono # (Auto) 0.5 th/mm3 (0.0-0.9); Mono % (Auto) 5.7 % (0.0-8.0); Neut # (Auto) 6.8 th/mm3 (1.8-7.7); Neut % (Auto) 76.4 % (16.0-70.0); Platelet Count 295 th/mm3 (150-450); Red Blood Count 3.57 mil/mm3 (4.00-5.30); White Blood Count 8.9 th/mm3 (4.0-11.0)
[2018-07-18] MEDS: Dextrose 5%/NaCl 0.45% Inj 1,000 ML IV.CONT SCH ×2 (14:00→23:47)
[2018-07-18] MEDS: GENTAMICIN IV.SIG SCH (15:38)
[2018-07-18] MEDS: SODIUM CHLOR 0.9% IV.SIG SCH (15:38)
[2018-07-18] MEDS: Senna/Docusate Sodium 8.6/50 MG Tablet PO SCH (21:50)
[2018-07-18] MEDS: Zolpidem Tartrate 5 MG Tablet PO PRN (23:41)
[2018-07-19 05:52] LABS: Baso % (Auto) 0.6 % (0.0-2.0); Eos # (Auto) 0.3 th/mm3 (0.0-0.4); Eos % (Auto) 3.8 % (0.0-4.0); Hematocrit 26.6 % (35.0-46.0); Hemoglobin 8.8 gm/dL (11.6-15.3); Lymph # (Auto) 1.4 th/mm3 (1.0-4.8); Lymph % (Auto) 18.3 % (9.0-44.0); Mean Corpuscular Hemoglobin 26.4 pg (27.0-34.0); Mean Corpuscular Volume 80.1 fL (80.0-100.0); Mean Platelet Volume 7.1 fL (7.0-11.0); Mono # (Auto) 0.5 th/mm3 (0.0-0.9); Mono % (Auto) 6.7 % (0.0-8.0); Neut # (Auto) 5.4 th/mm3 (1.8-7.7); Neut % (Auto) 70.6 % (16.0-70.0); Platelet Count 274 th/mm3 (150-450); Red Blood Count 3.32 mil/mm3 (4.00-5.30); Red Cell Distribution Width 17.8 % (11.6-17.2); White Blood Count 7.6 th/mm3 (4.0-11.0)
[2018-07-19 06:08] LABS: Bacteria,Urine Rare /hpf; Bilirubin,Urine Negative (Negative); Clarity,Urine Clear (Clear); Color,Urine Straw (Yellw/Straw); Glucose,Urine (UA) Negative (Negative); Leukocyte Esterase,Urine Moderate (Negative); Mucus,Urine Few /lpf (Occasional); Nitrite,Urine Negative (Negative); Specific Gravity,Urine 1.009 (1.002-1.035); Squamous Epithelial Cell,Urine <1 /hpf (0-5)
[2018-07-19 06:10] LABS: Alanine Aminotransferase 16 U/L (10-53); Albumin 2.3 g/dL (3.4-5.0); Anion Gap 10 meq/L (5-15); Aspartate Aminotransferase 21 U/L (15-37); Blood Urea Nitrogen 8 mg/dL (7-18); Calcium 7.8 mg/dL (8.5-10.1); Carbon Dioxide 24.6 meq/L (21.0-32.0); Chloride 109 meq/L (98-107); Glomerular Filtration Rate Greater Than 89 mL/min (>89); Glucose,Random 97 mg/dL (74-106); Potassium 3.9 meq/L (3.5-5.1); Sodium 144 meq/L (136-145)
[2018-07-19] MEDS: Ampicillin/Sulbactam Inj 3 GM in Sodium Chloride 0.9% Inj 100 ML IV.SIG SCH ×4 (06:10→23:53)
[2018-07-19 06:12] LABS: Alkaline Phosphatase 98 U/L (45-117); Total Protein 6.7 g/dL (6.4-8.2)
[2018-07-19] MEDS: Senna/Docusate Sodium 8.6/50 MG Tablet PO SCH ×2 (08:16→20:00)
[2018-07-19] MEDS: Dextrose 5%/NaCl 0.45% Inj 1,000 ML IV.CONT SCH ×2 (09:57→19:59)
[2018-07-19] MEDS: Ketorolac Inj 30 MG/ML (IVP) Vial IV.PUSH PRN ×3 (11:08→23:52)
[2018-07-19] MEDS: Enoxaparin Inj 40 MG/0.4 ML Syringe SQ SCH (11:09)
[2018-07-19] MEDS: GENTAMICIN IV.SIG SCH (13:04)
[2018-07-19] MEDS: SODIUM CHLOR 0.9% IV.SIG SCH (13:04)
[2018-07-19] MEDS: Zolpidem Tartrate 5 MG Tablet PO PRN (23:53)
[2018-07-20] MEDS: Ampicillin/Sulbactam Inj 3 GM in Sodium Chloride 0.9% Inj 100 ML IV.SIG SCH ×2 (05:49→12:58)
[2018-07-20] MEDS: Ketorolac Inj 30 MG/ML (IVP) Vial IV.PUSH PRN ×2 (05:49→15:35)
[2018-07-20] MEDS: Dextrose 5%/NaCl 0.45% Inj 1,000 ML IV.CONT SCH (05:53)
[2018-07-20] MEDS: Senna/Docusate Sodium 8.6/50 MG Tablet PO SCH (08:26)
[2018-07-20] MEDS: Enoxaparin Inj 40 MG/0.4 ML Syringe SQ SCH (12:58)
[2018-07-20] MEDS: GENTAMICIN IV.SIG SCH (13:30)
[2018-07-20] MEDS: SODIUM CHLOR 0.9% IV.SIG SCH (13:30)
== END 2018-07-20 17:10 | disposition home or self-care (01) ==
LOC: NEPHCDU 10:51 → N07 16:14
PROVIDERS: ADMIT Obstetrics & Gynecology Maternal & Fetal Medicine; ATTEND Obstetrics & Gynecology Maternal & Fetal Medicine